=== PATIENT | male | born 1995 | race Caucasian/White ===

== ENCOUNTER 2017-05-15 11:42 | Emergency (ER) | payer BC, OTHER ==
[2017-05-15 11:52] VITALS: RESP 16
--- NOTE | 2017-05-15 12:09 | XR ---
EXAMINATION TYPE: XR hand complete RT DATE OF EXAM: 05/15/2017 CLINICAL HISTORY: pain TECHNIQUE: Frontal, lateral and oblique images of the right hand are obtained. COMPARISON: None. FINDINGS: There is no acute fracture/dislocation evident. The joint spaces appear within normal limi ts. There appears to be soft tissue swelling particularly involving the second and third digits. Claudia elate clinically. No radiopaque foreign body is seen. Consider cellulitis. IMPRESSION: There is no acute fracture or dislocation. Soft tissue swelling. Consider cellulitis. ICD 10 NO FRACTURE, INITIAL EVALUATION
--- NOTE | 2017-05-15 12:13 | ED ---
Extremity Problem HPI - General Chief complaint: Extremity Problem,Nontraumatic Stated complaint: rt hand pain Time Seen by Provider: 05/15/17 11:53 Source: patient Mode of arrival: ambulatory Limitations: no limitations - History of Present Illness Initial comments: 21-year-old male patient presents to emergency department today for complaints of right hand pain and swelling. Patient states that symptoms are mostly located in the middle finger, radiating up to his wrist. He states that he occasionally does get tingling. Patient states that the area is quite swollen, worse in the morning. He states that he has pain daily. He states that it seems to be worsening. She states that a few weeks ago he was seen at urgent care in [place] states that he was placed on a Medrol Dosepak. States while he was taking the steroids his symptoms did improve however once they were completely returned immediately. He states that he was then seen again at [facility] and given a prescription for naproxen which she states doesn't help at all. He was also given a splint to wear that immobilizes the wrist, he states that this does not help either. He states that he has not had any x-ray to the hand. He denies any known injury. He denies any pain or swelling in the shoulder, elbow, or forearm. Patient denies any recent fever, chills, shortness breath, chest pain, abdominal pain, nausea, vomiting, diarrhea, constipation, back pain, numbness, tingling, headache, visual changes, hematuria , dysuria, urinary frequency, urinary urgency, or any other complaints. - Related Data Previous Rx's Medication Instructions Recorded predniSONE 50 mg PO DAILY #7 tablet 05/15/17 Allergies Allergy/AdvReac Type Severity Reaction Status Date / Time No Known Allergies Allergy Verified 05/15/17 13:30 Review of Systems ROS Statement: Those systems with pertinent positive or pertinent negative responses have been documented in the HPI. ROS Other: All systems not noted in ROS Statement are negative. Past Medical History Past Medical History: No Reported History History of Any Multi-Drug Resistant Organisms: None Reported Past Surgical History: No Surgical Hx Reported Past Psychological History: No Psychological Hx Reported Smoking Status: Current some day smoker Past Alcohol Use History: None Reported Past Drug Use History: None Reported General Exam Limitations: no limitations Neck exam: Present: normal inspection. Absent: tenderness, meningismus, lymphadenopathy Respiratory exam: Present: normal lung sounds bilaterally. Absent: respiratory distress, wheezes, rales, rhonchi, stridor Cardiovascular Exam: Present: regular rate, normal rhythm, normal heart sounds. Absent: systolic murmur, diastolic murmur, rubs, gallop, clicks Extremities exam: Present: full ROM, tenderness (Over the third MCP joint, the third PIP joints, and the third DIP joint.), normal capillary refill, other ( Right hand swelling, worse in the middle finger. Skin is pink, warm, and dry. Vitaligo noted. Cap refill less than three seconds. Radial pulses strong and equal bilaterally. ). Absent: pedal edema, joint swelling, calf tenderness Course Vital Signs 05/15/17 05/15/17 11:49 13:27 Temperature 99.3 F 98.9 F Pulse Rate 90 87 Respiratory 16 16 Rate Blood Pressure 131/75 121/72 O2 Sat by Pulse 98 99 Oximetry Medical Decision Making - Medical Decision Making 21-year-old male patient presents to emergency department today for evaluation of pain and swelling to the first and second digits on his right hand. X-ray evaluation was negative. Did perform a CBC and a CRP, CRP level is 12.6. Patient has been given a course of prednisone. He is instructed to follow up with his primary care physician for further rheumatological workup. He is instructed to return here immediately for any new, worsening, or concerning symptoms. He verbalizes understanding and agrees this plan. - Lab Data Result diagrams: 05/15/17 12:21 Lab Results 05/15/17 05/15/17 Range/Units 12:21 12:21 WBC 9.8 (3.8-10.6) k/uL RBC 5.24 (4.30-5.90) m/uL Hgb 16.1 (13.0-17.5) gm/dL Hct 48.8 (39.0-53.0) % MCV 93.1 (80.0-100.0) fL MCH 30.6 (25.0-35.0) pg MCHC 32.9 (31.0-37.0) g/dL RDW 13.9 (11.5-15.5) % Plt Count 352 (150-450) k/uL Neutrophils % 62 % Lymphocytes % 23 % Monocytes % 6 % Eosinophils % 7 % Basophils % 1 % Neutrophils # 6.0 (1.3-7.7) k/uL Lymphocytes # 2.2 (1.0-4.8) k/uL Monocytes # 0.6 (0-1.0) k/uL Eosinophils # 0.7 (0-0.7) k/uL Basophils # 0.1 (0-0.2) k/uL C-Reactive Protein 12.6 H (<10.0) mg/L - Radiology Data Radiology results: report reviewed, image reviewed 3 views of the right hand are obtained and showed no acute fracture or dislocation. The joint spaces appear within normal limits. There appears to be soft tissue swelling particularly involving the second and third digits. Correlate clinically. No radiopaque foreign body is seen. Consider cellulitis. Impression by Dr. Narayan states there is no acute fracture or dislocation. Soft tissue swelling. Consider cellulitis. Disposition Clinical Impression: Swelling of right hand, Elevated C-reactive protein (CRP), Arthralgia Disposition: HOME SELF-CARE Condition: Good Instructions: Arthralgia (ED), Swollen Joint (ED) Additional Instructions: Complete steroid prescription in full. Follow-up with Dr. Valderrama for recheck in 1-2 days. Return here immediately for any new, worsening, or concerning symptoms. Prescriptions: predniSONE 50 mg PO DAILY #7 tablet Referrals: Naresh Valderrama MD [Primary Care Provider] - 1-2 days Time of Disposition: 13:19
[2017-05-15 12:39] LABS: Basophils # (A) 0.1 k/uL (0-0.2); Basophils % (A) 1 %; CH 32.1; CHCM 34.6; Eosinophils # (A) 0.7 k/uL (0-0.7); Eosinophils % (A) 7 %; HCT 48.8 % (39.0-53.0); HDW 2.45; HGB 16.1 gm/dL (13.0-17.5); Luc # (Auto) 0.11; Luc % (Auto) 1; Lymphocytes # (A) 2.2 k/uL (1.0-4.8); Lymphocytes % (A) 23 %; MCH 30.6 pg (25.0-35.0); MCHC 32.9 g/dL (31.0-37.0); MCV 93.1 fL (80.0-100.0); Monocytes # (A) 0.6 k/uL (0-1.0); Monocytes % (A) 6 %; Neutrophils % (A) 62 %; RBC 5.24 m/uL (4.30-5.90); RDW 13.9 % (11.5-15.5); WBC 9.8 k/uL (3.8-10.6); WBC (Perox) 9.59
[2017-05-15 13:28] VITALS: BP 121/72; PULSE 87; TEMP 98.9
== END 2017-05-15 13:27 | disposition home or self-care (01) ==
LOC: EC 11:42
DX: M79.89 Other specified soft tissue disorders (principal); M25.541 Pain in joints of right hand; R79.82 Elevated C-reactive protein (CRP); F17.200 Nicotine dependence, unspecified, uncomplicated
CPT/HCPCS: 36415; 85025; 86140; 99283

== ENCOUNTER 2018-07-25 01:43 | Emergency (ER) | payer OTHER ==
[2018-07-25] MEDS ORDERED: KETOROLAC 30 MG/ML 1 ML VIAL IM STA (02:08)
[2018-07-25] MEDS ORDERED: ORPHENADRINE 30 MG/ML 2 ML VIAL IM STA (02:08)
--- NOTE | 2018-07-25 03:09 | XR ---
EXAMINATION TYPE: XR foot complete LT DATE OF EXAM: 07/25/2018 COMPARISON: NONE HISTORY: Heel pain TECHNIQUE: 3 views FINDINGS: Metatarsals are intact. I see no fracture nor dislocation. There is a plantar calcaneal spu r. IMPRESSION: Calcaneal spurring. No fracture seen.
--- NOTE | 2018-07-25 03:50 | ED ---
Extremity Problem HPI - General Chief complaint: Extremity Problem,Nontraumatic Stated complaint: lower back pain Time Seen by Provider: 07/25/18 01:54 Source: patient Mode of arrival: ambulatory Limitations: no limitations - History of Present Illness Initial comments: 22-year-old male patient presents to the emergency department today with chief complaint of left heel pain and left lower back pain. Patient states he has had sharp stabbing pain to the left heel for the last year. States that he developed low back pain approximately 2 months ago. States that both of been bothering him with increasing frequency however today his back seemed to become worse so he felt he should come to the emergency department for evaluation. He denies any pain radiation down the leg however states that it does extend down to his buttock. He denies any numbness or tingling to the lower extremities. Denies any saddle anesthesia or loss of bowel or bladder control. Patient denies any known injury to the low back. Denies any injury to the foot. Patient states occasionally he will have some mild swelling to the left foot. States that he has been diagnosed with arthritis. Denies any fevers or chills with this. Denies any use of street drugs. Patient denies any recent rash, shortness breath, chest pain, abdominal pain, nausea, vomiting, diarrhea, constipation, dizziness, weakness, hematuria, dysuria, urinary urgency, urinary frequency, headache, visual changes, or any other complaints. - Related Data Previous Rx's Medication Instructions Recorded Cyclobenzaprine [Flexeril] 10 mg PO TID #15 tab 07/25/18 Ibuprofen [Motrin] 600 mg PO Q8HR PRN #30 tab 07/25/18 Allergies Allergy/AdvReac Type Severity Reaction Status Date / Time No Known Allergies Allergy Verified 07/25/18 01:53 Review of Systems ROS Statement: Those systems with pertinent positive or pertinent negative responses have been documented in the HPI. ROS Other: All systems not noted in ROS Statement are negative. Past Medical History Past Medical History: No Reported History History of Any Multi-Drug Resistant Organisms: None Reported Past Surgical History: No Surgical Hx Reported Past Psychological History: No Psychological Hx Reported Smoking Status: Current some day smoker Past Alcohol Use History: None Reported, Rare Past Drug Use History: None Reported General Exam Limitations: no limitations General appearance: alert, in no apparent distress, other (This is a well- developed, well-nourished adult male patient in no acute distress. Vital signs upon presentation are temperature 98.8F, pulse 99, respirations 18, blood pressure 126/66, pulse ox 98% on room air.) Eye exam: Present: normal appearance, PERRL, EOMI. Absent: scleral icterus, conjunctival injection, periorbital swelling ENT exam: Present: normal exam, normal oropharynx, mucous membranes moist Respiratory exam: Present: normal lung sounds bilaterally. Absent: respiratory distress, wheezes, rales, rhonchi, stridor Cardiovascular Exam: Present: regular rate, normal rhythm, normal heart sounds. Absent: systolic murmur, diastolic murmur, rubs, gallop, clicks GI/Abdominal exam: Present: soft, normal bowel sounds. Absent: distended, tenderness, guarding, rebound, rigid Extremities exam: Present: normal inspection, full ROM, tenderness (Tenderness over the plantar surface left heel), normal capillary refill, other (Skin to his left foot is intact with no evidence of lesion or plantar wart. Skin is pink, warm, dry. Cap refills less than 3 seconds. Pedal pulses are 2+ and equal bilaterally.). Absent: pedal edema, joint swelling, calf tenderness Back exam: Present: normal inspection, other (Patient has tenderness over the left low back. Skin is intact with no evidence of rash.). Absent: vertebral tenderness Neurological exam: Present: alert, oriented X3, CN II-XII intact, other ( Strength in all 4 extremities is 5/5.) Psychiatric exam: Present: normal affect, normal mood Skin exam: Present: warm, dry, intact, normal color. Absent: rash Course Vital Signs 07/25/18 07/25/18 01:51 04:10 Temperature 98.8 F 98.0 F Pulse Rate 99 83 Respiratory 18 17 Rate Blood Pressure 126/66 116/74 O2 Sat by Pulse 98 95 Oximetry Medical Decision Making - Medical Decision Making 22-year-old male patient presents to the emergency department today for evaluation of left heel pain and left low back pain. Physical examination is relatively unremarkable. Patient is neurologically and neurovascularly intact. Patient did have some tenderness over the plantar surface of the left heel. Some tenderness over the left low back. Skin was intact with no lesions. X- ray of the left foot did reveal calcaneal spurring. Patient symptoms are consistent with this finding. Patient symptoms are also consistent with mechanical low back pain. We'll treat with anti-inflammatory medication and muscle relaxers. For the heel sprays advised to obtain a insert for his shoes the drugstore. He is instructed to use ice to the bottom of the foot for relief of symptoms. He is instructed follow-up with his primary care physician for recheck in 1-2 days. Return parameters discussed in detail. He verbalizes understanding and agrees with this plan. - Radiology Data Radiology results: report reviewed, image reviewed 3 views of the left foot are obtained. Metatarsals are intact. This no fracture or dislocation. There is a plantar calcaneal spur. Impression by Dr. Paris shows calcaneal spurring. No fracture seen. Disposition Clinical Impression: Calcaneal spur of left foot, Acute low back pain Disposition: HOME SELF-CARE Condition: Good Instructions: Acute Low Back Pain (ED), Lower Back Exercises (ED), Heel Spur ( ED), Core Strengthening Exercises (ED) Additional Instructions: Take medication as directed. Find insert at the drug store for heel spurs. Use ice on the bottom of the foot to reduce inflammation. Follow up with your primary care physician for recheck in 1-2 days. Return immediately for any new, worsening or concerning symptoms. Prescriptions: Cyclobenzaprine [Flexeril] 10 mg PO TID #15 tab Ibuprofen [Motrin] 600 mg PO Q8HR PRN #30 tab PRN Reason: Pain Is patient prescribed a controlled substance at d/c from ED?: No Referrals: Naresh Valderrama MD [Primary Care Provider] - 1-2 days Time of Disposition: 03:49
[2018-07-25 04:12] VITALS: BP 116/74; PULSE 83; RESP 17; TEMP 98
== END 2018-07-25 04:11 | disposition home or self-care (01) ==
LOC: EC 01:43
DX: M77.32 Calcaneal spur, left foot (principal); M54.5 Low back pain; F17.200 Nicotine dependence, unspecified, uncomplicated
CPT/HCPCS: 73630; 99283; 96372 ×2; J2360; J1885

== ENCOUNTER 2020-04-19 11:02 | Emergency (ER) | payer OTHER ==
[2020-04-19 11:16] VITALS: BP 113/75; PULSE 73; RESP 19; TEMP 98.8
--- NOTE | 2020-04-19 11:38 | XR ---
EXAMINATION TYPE: XR hand complete LT DATE OF EXAM: 04/19/2020 CLINICAL HISTORY: Injury with pain. TECHNIQUE: Frontal, lateral and oblique images of the left hand are obtained. COMPARISON: None. FINDINGS: There is acute comminuted intra-articular displaced fracture at base of fifth metacarpal w ith a few small fracture fragments. Incomplete extension of the phalanges. The joint spaces in the le ft hand appear within normal limits. The overlying soft tissue appears unremarkable. IMPRESSION: There is acute comminuted displaced intra-articular fracture base of fifth metacarpal. (Initial encounter closed type posttraumatic fracture)
--- NOTE | 2020-04-19 12:01 | ED ---
Upper Extremity HPI - General Chief Complaint: Extremity Injury, Upper Stated Complaint: Left Hand Injury Time Seen by Provider: 04/19/20 11:17 Source: patient Mode of arrival: ambulatory Limitations: no limitations - History of Present Illness Initial Comments: 24y male presenting for left hand injury. Patient states crushed left hand with a sludge hammer last night. Patient admits to some swelling, light bruising. Denies loss of sensation, weakness. States he is still able to move all digits of the left hand, Denies wrist pain. Denies additional areas of injury. Denies laceration. Patient has no additional complaints. Appears well on arrival, no acute distress. - Related Data Previous Rx's Medication Instructions Recorded Cyclobenzaprine [Flexeril] 10 mg PO TID #15 tab 07/25/18 Ibuprofen [Motrin] 600 mg PO Q8HR PRN #30 tab 07/25/18 Allergies Allergy/AdvReac Type Severity Reaction Status Date / Time No Known Allergies Allergy Verified 07/25/18 01:53 Review of Systems ROS Statement: Those systems with pertinent positive or pertinent negative responses have been documented in the HPI. ROS Other: All systems not noted in ROS Statement are negative. Past Medical History Past Medical History: No Reported History History of Any Multi-Drug Resistant Organisms: None Reported Past Surgical History: No Surgical Hx Reported Past Psychological History: No Psychological Hx Reported Smoking Status: Current every day smoker Past Alcohol Use History: None Reported, Rare Past Drug Use History: None Reported General Exam - General Exam Comments Initial Comments: General: The patient is awake and alert, in no distress, and does not appear acutely ill. Eye: +3mm pupils are equal, round and reactive to light, extra-ocular movements are intact. No nystagmus. There is normal conjunctiva bilaterally. No signs of icterus. Cardiovascular: There is a regular rate and rhythm. No murmur, rub or gallop is appreciated. Respiratory: Lungs are clear to auscultation, respirations are non-labored, breath sounds are equal. No wheezes, stridor, rales, or rhonchi. Musculoskeletal: diffuse swelling over the dorsal aspect of left hand. His tenderness to patient over the lateral aspect of hand notes tenderness to patient the carpals the anatomical snuffbox. Full sensation proximal and distal to injury site. Strength intact at the MCP DIP and PIP joints of all 5 digits of the left hand. Patient is right-hand dominant. Radial pulses equal +2 bilaterally.able to make the fingers crossed thumbs-up and oppose the small digit and thumb. tissues are soft and compressible no pain out of proportion. Neurological: A&O x 3. CN II-XII intact grossly, There are no obvious motor or sensory deficits. Coordination appears grossly intact. Speech is normal. Skin: Skin is warm and dry and no rashes or lesions are noted. Psychiatric: Cooperative, appropriate mood & affect, normal judgment. Limitations: no limitations Course Vital Signs 04/19/20 11:11 Temperature 98.8 F Pulse Rate 73 Respiratory 19 Rate Blood Pressure 113/75 O2 Sat by Pulse 98 Oximetry Medical Decision Making - Medical Decision Making patient neurovascular intact no pain out of proportion. Soft tissues soft compressible. X-rays revealed a fifth metacarpal base fracture. There is some displacement. Patient placed in splint. Instructed to f/u with orthopedic hand in 2-3 days. Patient is agreeable to care plan and discharge her discussed return parameters patient is aware of the importance of outpatient follow-up discharged appearing well. Disposition Clinical Impression: Fracture of fifth metacarpal bone of left hand, Left hand pain Disposition: HOME SELF-CARE Condition: Good Instructions (If sedation given, give patient instructions): Hand Fracture (ED) Additional Instructions: Please use medication as discussed. Please follow-up with orthopedic hand in next 2-3 days, call [facility] after you leave here to schedule your appointment. Keep splint in place. Please return to emergency room if the symptoms increase or worsen or for any other concerns. Is patient prescribed a controlled substance at d/c from ED?: No Referrals: Asher Bain DO [Medical Doctor] - 1-2 days Naresh Valderrama MD [Primary Care Provider] - 1-2 days Time of Disposition: 12:00
== END 2020-04-19 12:10 | disposition home or self-care (01) ==
LOC: EC 11:02
DX: S62.317A Displaced fracture of base of fifth metacarpal bone, left hand, initial encounter for closed fracture (principal); F17.200 Nicotine dependence, unspecified, uncomplicated; W22.8XXA Striking against or struck by other objects, initial encounter
CPT/HCPCS: 29125; 99284

== ENCOUNTER 2020-05-05 23:01 | Emergency (ER) | payer OTHER ==
[2020-05-05] MEDS ORDERED: IBUPROFEN 800 MG TAB PO STA (23:12)
[2020-05-05] MEDS ORDERED: ACETAMINOPHEN TAB 500 MG TAB PO STA (23:12)
--- NOTE | 2020-05-05 23:26 | ED ---
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 No other recent travel history. Patient has had persistent fever not feeling well for a few days not bodyaches and pains and some occasional shortness of breath, no underlying medical history MD Complaint: fever, malaise, weakness -: days(s) Temperature Source: oral Context: sick contacts Associated Symptoms: chills, rigors, myalgias, sore throat, cough, nausea Treatments Prior to Arrival: none - Related Data Previous Rx's Medication Instructions Recorded Cyclobenzaprine [Flexeril] 10 mg PO TID #15 tab 07/25/18 Ibuprofen [Motrin] 600 mg PO Q8HR PRN #30 tab 07/25/18 Allergies Allergy/AdvReac Type Severity Reaction Status Date / Time No Known Allergies Allergy Verified 05/05/20 23:07 Review of Systems ROS Statement: Those systems with pertinent positive or pertinent negative responses have been documented in the HPI. ROS Other: All systems not noted in ROS Statement are negative. Past Medical History Past Medical History: No Reported History History of Any Multi-Drug Resistant Organisms: None Reported Past Surgical History: No Surgical Hx Reported Past Psychological History: No Psychological Hx Reported Smoking Status: Current every day smoker Past Alcohol Use History: Occasional, Rare Past Drug Use History: None Reported General Exam Limitations: no limitations General appearance: alert, in no apparent distress Head exam: Present: atraumatic, normocephalic, normal inspection Eye exam: Present: normal appearance, PERRL, EOMI. Absent: scleral icterus, conjunctival injection, periorbital swelling ENT exam: Present: normal exam, mucous membranes moist Neck exam: Present: normal inspection. Absent: tenderness, meningismus, lymphadenopathy Respiratory exam: Present: decreased breath sounds, prolonged expiratory. Absent: respiratory distress, wheezes, rales, rhonchi, stridor Cardiovascular Exam: Present: normal rhythm, tachycardia, normal heart sounds. Absent: systolic murmur, diastolic murmur, rubs, gallop, clicks GI/Abdominal exam: Present: soft, normal bowel sounds. Absent: distended, tenderness, guarding, rebound, rigid Extremities exam: Present: normal inspection, full ROM, normal capillary refill. Absent: tenderness, pedal edema, joint swelling, calf tenderness Back exam: Present: normal inspection Neurological exam: Present: alert, oriented X3, CN II-XII intact Psychiatric exam: Present: normal affect, normal mood Skin exam: Present: warm, dry, intact, normal color. Absent: rash Course Vital Signs 05/05/20 23:04 Temperature 101.7 F H Pulse Rate 127 H Respiratory 22 Rate Blood Pressure 110/69 O2 Sat by Pulse 94 L Oximetry - Reevaluation(s) Reevaluation #1: 05/06/20 00:28 Medical record is reviewed Reevaluation #2: 05/06/20 00:29 Patient still does not feel well bodyaches pains run down - Consultations Consultation #1: Spoke with Dr. Pineda agrees to admit this patient Medical Decision Making - Medical Decision Making 24 male DF for evaluation, patient has persistent fever and tachycardia here in the ER will admit for rule out coronavirus infection, patient also does not feel well with diffuse body aches and pains - Lab Data Result diagrams: 05/05/20 23:42 Lab Results 05/05/20 05/05/20 Range/Units 23:42 23:42 Sodium 132 L (137-145) mmol/L Potassium 3.5 (3.5-5.1) mmol/L Chloride 104 (98-107) mmol/L Carbon Dioxide 21 L (22-30) mmol/L Anion Gap 7 mmol/L BUN 7 L (9-20) mg/dL Creatinine 0.78 (0.66-1.25) mg/dL Est GFR (CKD-EPI)AfAm >90 (>60 ml/min/1.73 sqM) Est GFR (CKD-EPI)NonAf >90 (>60 ml/min/1.73 sqM) Glucose 115 H (74-99) mg/dL Plasma Lactic Acid Coy 1.3 (0.7-2.0) mmol/L Calcium 8.5 (8.4-10.2) mg/dL Magnesium 1.8 (1.6-2.3) mg/dL Total Bilirubin 1.1 (0.2-1.3) mg/dL AST 32 (17-59) U/L ALT 24 (4-49) U/L Alkaline Phosphatase 64 (38-126) U/L Lactate Dehydrogenase 824 H (313-618) U/L C-Reactive Protein 43.6 H (<10.0) mg/L Total Protein 6.7 (6.3-8.2) g/dL Albumin 3.6 (3.5-5.0) g/dL - EKG Data -: EKG Interpreted by Me (EKG is sinus tach 126 AK 132 QRS 78 QTc 448) Disposition Clinical Impression: Fever, Viral infection, Tachycardia Narrative: roCOVID Disposition: ADMITTED IP TO THIS HOSP Condition: Fair Is patient prescribed a controlled substance at d/c from ED?: No Referrals: Naresh Valderrama MD [Primary Care Provider] - 1-2 days
[2020-05-06] MEDS ORDERED: SODIUM CHLORIDE 0.9% 500 ML 500 ML IV STA (00:06)
[2020-05-06] MEDS ORDERED: SODIUM CHLORIDE 0.9% 1,000 ML IV STA ×2 (00:06)
[2020-05-06 00:10] LABS: ALT 24 U/L (4-49); AST 32 U/L (17-59); African American GFR (CKD) >90 (>60 ml/min/1.73 sqM); Albumin 3.6 g/dL (3.5-5.0); Alkaline Phosphatase 64 U/L (38-126); Anion Gap 7 mmol/L; Blood Urea Nitrogen 7 mg/dL (9-20); C Reactive Protein 43.6 mg/L (<10.0); Calcium 8.5 mg/dL (8.4-10.2); Carbon Dioxide 21 mmol/L (22-30); Chloride 104 mmol/L (98-107); Glucose 115 mg/dL (74-99); LDH 824 U/L (313-618); Magnesium 1.8 mg/dL (1.6-2.3); Non-African American GFR(CKD) >90 (>60 ml/min/1.73 sqM); Potassium 3.5 mmol/L (3.5-5.1); Sodium 132 mmol/L (137-145); Total Bilirubin 1.1 mg/dL (0.2-1.3); Total Protein 6.7 g/dL (6.3-8.2)
--- NOTE | 2020-05-06 00:15 | XR ---
EXAMINATION TYPE: XR chest 1V portable DATE OF EXAM: 05/05/2020 COMPARISON: NONE HISTORY: Pneumonia TECHNIQUE: FINDINGS: Heart and mediastinum are normal. Lungs are clear. Diaphragm is normal. Bony thorax appears normal. IMPRESSION: Normal chest.
[2020-05-06 00:17] LABS: INR 1.1 (<1.2)
[2020-05-06 00:18] LABS: Partial Thromboplastin Time 25.9 sec (22.0-30.0); Prothrombin Time 11.4 sec (9.0-12.0)
[2020-05-06 00:20] LABS: HCT 47.1 % (39.0-53.0); HGB 15.7 gm/dL (13.0-17.5); MCH 29.9 pg (25.0-35.0); MCHC 33.3 g/dL (31.0-37.0); MCV 89.9 fL (80.0-100.0); Platelet Count 212 k/uL (150-450); RBC 5.24 m/uL (4.30-5.90); RDW 12.8 % (11.5-15.5)
[2020-05-06] MEDS ORDERED: PNEUMONIA PROTOCOL UTILIZED 1 EACH MISC PO PRN (00:22)
[2020-05-06] MEDS ORDERED: IPRATROPIUM-ALBUTEROL 3 ML NEB INHALATION PRN (00:22)
[2020-05-06] MEDS ORDERED: SODIUM CHLORIDE 0.9% 1,000 ML IV SCH (00:30)
[2020-05-06] MEDS ORDERED: AZITHROMYCIN 500 MG in SODIUM CHLORIDE 0.9% 250 ML IVPB ONE (00:30)
[2020-05-06 00:37] LABS: D-Dimer 2.93 mg/L FEU (<0.60)
[2020-05-06 00:49] VITALS: RESP 18
[2020-05-06 01:32] LABS: Band Neutrophils % 5 %; Neutrophils % (M) 41 %; Nucleated Red Blood Cells 0 /100 WBC (0-0); Total Cells Counted 100
[2020-05-06 01:35] LABS: Anisocytosis (M) Present; Large Platelets Present; Polychromasia Present
[2020-05-06 01:43] LABS: Reactive Lymphocytes Present
[2020-05-06 04:05] VITALS: BP 108/53; PULSE 98; TEMP 98.5
[2020-05-06] MEDS ORDERED: ENOXAPARIN 40 MG/0.4 ML SYRINGE SQ SCH (09:00)
[2020-05-06 10:40] LABS: Ferritin 310.1 ng/mL (22.0-322.0)
[2020-05-07] MEDS ORDERED: AZITHROMYCIN 500 MG TAB PO SCH (09:00)
== END 2020-05-06 03:25 | disposition other institution (70) ==
LOC: EC 23:01 → UNDOADMOB 05-06 00:22 → 1SOBS 05-06 00:22 → EC 05-06 03:25
DX: B34.9 Viral infection, unspecified (principal); R00.0 Tachycardia, unspecified; Z20.828 Contact with and (suspected) exposure to other viral communicable diseases; F17.200 Nicotine dependence, unspecified, uncomplicated
CPT/HCPCS: 99285; 96365; 96361; 36415; 93005; 85379; 80053; 82728; 83605; 83615; 83735; 85025; 85610; 85730; 86140; 87040; 87081; 87430; 87502; 84145; 71045; U0003; J0456

== ENCOUNTER 2020-07-18 06:41 | Emergency (ER) | payer OTHER ==
[2020-07-18] MEDS ORDERED: KETOROLAC 15 MG/ML 1 ML VIAL IVP STA (07:22)
--- NOTE | 2020-07-18 07:28 | ED ---
General Adult HPI - General Chief complaint: Extremity Problem,Nontraumatic Stated complaint: knee pain Time Seen by Provider: 07/18/20 07:08 Source: patient, RN notes reviewed Limitations: no limitations - History of Present Illness Initial comments: Patient is a pleasant 24-year-old male presenting to the emergency Department with complaints of right knee swelling and pain. Onset of symptoms was around 2 weeks ago. Symptoms worsen with standing up at work all day. No fevers. No erythema. No warmth. Patient states he had a similar episode once a couple years ago however unclear why. Pain increases with movement. No trauma. - Related Data Previous Rx's Medication Instructions Recorded Ibuprofen [Motrin] 600 mg PO Q6HR PRN #20 tab 07/18/20 Allergies Allergy/AdvReac Type Severity Reaction Status Date / Time No Known Allergies Allergy Verified 07/18/20 08:48 Review of Systems ROS Statement: Those systems with pertinent positive or pertinent negative responses have been documented in the HPI. ROS Other: All systems not noted in ROS Statement are negative. Constitutional: Denies: fever Eyes: Denies: eye pain ENT: Denies: ear pain Respiratory: Denies: cough Cardiovascular: Denies: chest pain Endocrine: Denies: fatigue Gastrointestinal: Denies: abdominal pain Genitourinary: Denies: dysuria Musculoskeletal: Reports: as per HPI, joint swelling, arthralgia. Denies: back pain Skin: Denies: rash Neurological: Denies: headache Past Medical History Past Medical History: No Reported History History of Any Multi-Drug Resistant Organisms: None Reported Past Surgical History: No Surgical Hx Reported Past Psychological History: No Psychological Hx Reported Smoking Status: Current every day smoker Past Alcohol Use History: Rare Past Drug Use History: None Reported General Exam Limitations: no limitations General appearance: alert, in no apparent distress Head exam: Present: normocephalic Eye exam: Present: normal appearance Neck exam: Present: normal inspection Respiratory exam: Present: normal lung sounds bilaterally, respiratory distress Cardiovascular Exam: Present: regular rate, normal rhythm Expanded Peripheral pulses: 2+: Dorsalis Pedis (R), Dorsalis Pedis (L) GI/Abdominal exam: Present: soft. Absent: tenderness Extremities exam: Present: joint swelling (Right knee with moderate effusion with tenderness. No erythema. No warmth.) Neurological exam: Present: alert Psychiatric exam: Present: normal affect, normal mood Skin exam: Present: normal color, other (Bilateral hands with distal skin discoloration which patient states is chronic since a young child). Absent: erythema Course Vital Signs 07/18/20 07/18/20 06:59 10:46 Temperature 98.7 F Pulse Rate 91 68 Respiratory 18 16 Rate Blood Pressure 130/81 108/70 O2 Sat by Pulse 97 98 Oximetry Procedures - Procedures Initial comment: Arthrocentesis: Right knee marked and prepped with Betadine. Area was anesthetized with 2 mL of 1% plain lidocaine. Using lateral approach 18-gauge needle withdrew 70 mL of yellow fluid. No purulence. Patient tolerated procedure well. Medical Decision Making - Medical Decision Making Case discussed with practitioner branch who agrees patient is low risk for infection and he is comfortable with discharge and follow-up. Patient updated. - Lab Data Result diagrams: 07/18/20 08:37 07/18/20 08:37 Lab Results 07/18/20 07/18/20 07/18/20 Range/Units 08:37 08:37 08:37 WBC 10.0 (3.8-10.6) k/uL RBC 5.10 (4.30-5.90) m/uL Hgb 15.4 (13.0-17.5) gm/dL Hct 46.2 (39.0-53.0) % MCV 90.5 (80.0-100.0) fL MCH 30.3 (25.0-35.0) pg MCHC 33.4 (31.0-37.0) g/dL RDW 12.3 (11.5-15.5) % Plt Count 385 (150-450) k/uL MPV 7.0 Neutrophils % 55 % Lymphocytes % 29 % Monocytes % 6 % Eosinophils % 7 % Basophils % 2 % Neutrophils # 5.5 (1.3-7.7) k/uL Lymphocytes # 2.9 (1.0-4.8) k/uL Monocytes # 0.6 (0-1.0) k/uL Eosinophils # 0.7 (0-0.7) k/uL Basophils # 0.2 (0-0.2) k/uL PT 10.2 (9.0-12.0) sec INR 1.0 (<1.2) APTT 24.9 (22.0-30.0) sec Sodium 138 (137-145) mmol/L Potassium 4.4 (3.5-5.1) mmol/L Chloride 106 (98-107) mmol/L Carbon Dioxide 22 (22-30) mmol/L Anion Gap 10 mmol/L BUN 14 (9-20) mg/dL Creatinine 0.72 (0.66-1.25) mg/dL Est GFR (CKD-EPI)AfAm >90 (>60 ml/min/1.73 sqM) Est GFR (CKD-EPI)NonAf >90 (>60 ml/min/1.73 sqM) Glucose 125 H (74-99) mg/dL Plasma Lactic Acid Coy (0.7-2.0) mmol/L Calcium 8.9 (8.4-10.2) mg/dL Total Bilirubin 0.8 (0.2-1.3) mg/dL AST 22 (17-59) U/L ALT 24 (4-49) U/L Alkaline Phosphatase 74 (38-126) U/L C-Reactive Protein 38.9 H (<10.0) mg/L Total Protein 7.0 (6.3-8.2) g/dL Albumin 3.8 (3.5-5.0) g/dL Fluid Source Fluid Color Fluid Appearance Fluid RBC /uL Fluid Nucleated Cells /uL Fluid Polynuclear WBCs % Fluid Mononuclear WBCs % 07/18/20 07/18/20 Range/Units 08:37 09:41 WBC (3.8-10.6) k/uL RBC (4.30-5.90) m/uL Hgb (13.0-17.5) gm/dL Hct (39.0-53.0) % MCV (80.0-100.0) fL MCH (25.0-35.0) pg MCHC (31.0-37.0) g/dL RDW (11.5-15.5) % Plt Count (150-450) k/uL MPV Neutrophils % % Lymphocytes % % Monocytes % % Eosinophils % % Basophils % % Neutrophils # (1.3-7.7) k/uL Lymphocytes # (1.0-4.8) k/uL Monocytes # (0-1.0) k/uL Eosinophils # (0-0.7) k/uL Basophils # (0-0.2) k/uL PT (9.0-12.0) sec INR (<1.2) APTT (22.0-30.0) sec Sodium (137-145) mmol/L Potassium (3.5-5.1) mmol/L Chloride (98-107) mmol/L Carbon Dioxide (22-30) mmol/L Anion Gap mmol/L BUN (9-20) mg/dL Creatinine (0.66-1.25) mg/dL Est GFR (CKD-EPI)AfAm (>60 ml/min/1.73 sqM) Est GFR (CKD-EPI)NonAf (>60 ml/min/1.73 sqM) Glucose (74-99) mg/dL Plasma Lactic Acid Coy 1.5 (0.7-2.0) mmol/L Calcium (8.4-10.2) mg/dL Total Bilirubin (0.2-1.3) mg/dL AST (17-59) U/L ALT (4-49) U/L Alkaline Phosphatase (38-126) U/L C-Reactive Protein (<10.0) mg/L Total Protein (6.3-8.2) g/dL Albumin (3.5-5.0) g/dL Fluid Source Synovial Fluid Color Yellow Fluid Appearance Hazy Fluid RBC 340 /uL Fluid Nucleated Cells 5020 /uL Fluid Polynuclear WBCs 89 % Fluid Mononuclear WBCs 11 % - Radiology Data Radiology results: image reviewed (Right knee x-ray does show effusion) Disposition Clinical Impression: Knee effusion, right Disposition: HOME SELF-CARE Condition: Stable Instructions (If sedation given, give patient instructions): Swollen Knee Joint (ED) Additional Instructions: Please follow-up with orthopedics in the next day or 2 for recheck, number provided. Please also follow-up with primary care physician. Return for fever, redness, worsening or change in symptoms or other concerns. Prescription for Motrin 600 sent to [facility] on Prescriptions: Ibuprofen [Motrin] 600 mg PO Q6HR PRN #20 tab PRN Reason: Pain Is patient prescribed a controlled substance at d/c from ED?: No Referrals: Naresh Valderrama MD [Primary Care Provider] - 1-2 days Rush Sue MD [STAFF PHYSICIAN] - 1-2 days Time of Disposition: 11:50
[2020-07-18] MEDS ORDERED: LIDOCAINE 1% INJ 10MG/ML (20 ML MDV) SQ ONE (07:42)
--- NOTE | 2020-07-18 07:50 | XR ---
EXAMINATION TYPE: XR knee complete RT DATE OF EXAM: 07/18/2020 COMPARISON: NONE HISTORY: 24-year-old male with pain and swelling TECHNIQUE: 3 views FINDINGS: Moderate to large knee joint effusion. Extensor mechanism appears intact. No acute fracture, subluxat ion, or dislocation seen. IMPRESSION: Moderate to large joint effusion. MRI if indicated for any suspected internal derangement. No acute o sseous abnormality seen.
[2020-07-18 08:45] LABS: Basophils # (A) 0.2 k/uL (0-0.2); Basophils % (A) 2 %; Eosinophils # (A) 0.7 k/uL (0-0.7); Eosinophils % (A) 7 %; HCT 46.2 % (39.0-53.0); HGB 15.4 gm/dL (13.0-17.5); Lymphocytes # (A) 2.9 k/uL (1.0-4.8); Lymphocytes % (A) 29 %; MCH 30.3 pg (25.0-35.0); MCHC 33.4 g/dL (31.0-37.0); MCV 90.5 fL (80.0-100.0); Monocytes # (A) 0.6 k/uL (0-1.0); Monocytes % (A) 6 %; Neutrophils # (A) 5.5 k/uL (1.3-7.7); Neutrophils % (A) 55 %; Platelet Count 385 k/uL (150-450); RDW 12.3 % (11.5-15.5)
[2020-07-18 08:56] LABS: ALT 24 U/L (4-49); AST 22 U/L (17-59); African American GFR (CKD) >90 (>60 ml/min/1.73 sqM); Albumin 3.8 g/dL (3.5-5.0); Alkaline Phosphatase 74 U/L (38-126); Anion Gap 10 mmol/L; Blood Urea Nitrogen 14 mg/dL (9-20); C Reactive Protein 38.9 mg/L (<10.0); Calcium 8.9 mg/dL (8.4-10.2); Carbon Dioxide 22 mmol/L (22-30); Chloride 106 mmol/L (98-107); Glucose 125 mg/dL (74-99); Non-African American GFR(CKD) >90 (>60 ml/min/1.73 sqM); Potassium 4.4 mmol/L (3.5-5.1); Sodium 138 mmol/L (137-145); Total Bilirubin 0.8 mg/dL (0.2-1.3)
[2020-07-18 09:06] LABS: Partial Thromboplastin Time 24.9 sec (22.0-30.0); Prothrombin Time 10.2 sec (9.0-12.0)
[2020-07-18 11:30] LABS: Appearance,BF Hazy; Color,BF Yellow; Nucleated Cells, Body Fluid 5020 /uL; RBC, Body Fluid 340 /uL
[2020-07-18 11:32] LABS: Mononuclear WBC,Body Fluid 11 %; Polynuclear WBC,Body Fluid 89 %; Total Cells Counted,Body Fluid 100
[2020-07-18] MEDS ORDERED: ACET/COD 300 MG/30 MG STARTER PACK 6 TAB BTL PO STA (11:51)
[2020-07-18 12:41] VITALS: BP 124/75; PULSE 72; RESP 18; TEMP 98.3
[2020-07-18 17:54] LABS: Rheumatoid Factor, Qnt <4 IU/mL (0-13)
[2020-07-18 20:33] LABS: Glucose, BF Source Body Fluid; Glucose, Body Fluid 114 mg/dL; Total Protein, Body Fluid 4500 mg/dL
== END 2020-07-18 12:35 | disposition home or self-care (01) ==
LOC: EC 06:41
DX: M25.461 Effusion, right knee (principal); F17.200 Nicotine dependence, unspecified, uncomplicated
CPT/HCPCS: 36415; 89060; 80053; 89050; 83605; 85025; 85610; 85730; 86140; 86431; 87040; 87070; 87205; 82945; 84157; 73562; 99284; 20610; 96374; J2001; J1885

== ENCOUNTER → 2020-08-18 | Outpatient (CLI) | payer OTHER ==
--- NOTE | 2020-08-18 15:44 | MR ---
EXAMINATION TYPE: MR knee RT wo con DATE OF EXAM: 08/18/2020 COMPARISON: Plain film 07/26/2020 HISTORY: Right knee pain x 2 mos, no trauma TECHNIQUE: Multiplanar, multisequence imaging of the right knee is performed without IV contrast. FINDINGS: MEDIAL MENISCUS: At the level the medial meniscus there is some increased distance, some increased si gnal present suggesting a degree of meniscocapsular separation. LATERAL MENISCUS: Anterior and posterior horns are remarkable for possible longitudinal tear insertio n of the femoral ligament, sagittal image #19. CRUCIATE LIGAMENTS: The anterior and posterior cruciate ligaments are intact and unremarkable. COLLATERAL LIGAMENTS: Some increased signal present along the medial collateral ligament could indica te underlying strain, ligaments are intact. Suspect popliteus tendon strain, there is local fluid sig nal EXTENSOR MECHANISM: Visualized quadriceps and patellar tendons are intact. EFFUSION: Suprapatellar joint effusion is present POPLITEAL CYST: No popliteal/baltazar cyst. TRICOMPARTMENT SPACES: Maintained CARTILAGE: Unremarkable BONE MARROW SIGNAL: No focal abnormal marrow signal is appreciated. OTHER: IMPRESSION: There is a sizable joint effusion. Correlate for possible medial collateral ligament strain, some i ncreased distance noted at the meniscal capsular junction with some local edema. Possible longitudina l tear at the insertion of the meniscal femoral ligament, popliteus tendon strain.
== END | disposition home or self-care (01) ==
LOC: RADMRIMAIN 10:30
PROVIDERS: ATTEND Orthopaedic Surgery
DX: M25.461 Effusion, right knee (principal)

== ENCOUNTER 2020-11-01 07:15 | Emergency (ER) | payer OTHER ==
[2020-11-01 07:20] VITALS: RESP 18
[2020-11-01] MEDS ORDERED: ONDANSETRON 4 MG/2 ML VIAL IVP STA (07:43)
[2020-11-01] MEDS ORDERED: SODIUM CHLORIDE 0.9% 1,000 ML IV ONE (07:43)
[2020-11-01] MEDS ORDERED: diphenhydrAMINE 50 MG/ML 1 ML VIAL IVP STA (07:43)
[2020-11-01] MEDS ORDERED: ORPHENADRINE 30 MG/ML 2 ML VIAL IVP STA (07:44)
--- NOTE | 2020-11-01 07:49 | ED ---
General Adult HPI - General Chief complaint: Headache Stated complaint: Headache, Knee pain Time Seen by Provider: 11/01/20 07:35 Source: patient, RN notes reviewed Mode of arrival: wheelchair Limitations: no limitations - History of Present Illness Initial comments: 25-year-old male presents emergency Department with chief complaint of headache, nausea vomiting. Patient states that he's had headache for last 1 week states that it has been persistent for last 24 hours. He states he was on the right and left foot states is now only on the left. Patient states that it was only in the morning but again is now persistent. Patient denies any blurred vision no photophobia. Patient has a history of chronic headaches. Patient denies any neck pain neck stiffness no fever or chills but states he's felt achy had a total. He's had a slight cough. Denies any chest pain palpitations. - Related Data Home Medications Medication Instructions Recorded Confirmed [id number] 2 tab PO Q4HR PRN 11/01/20 11/01/20 [Excedrin] Ibuprofen [Advil] 800 mg PO Q6H PRN 11/01/20 11/01/20 Previous Rx's Medication Instructions Recorded Amoxicillin/Potassium Clav 1 tab PO Q12HR #20 tab 11/01/20 [Augmentin 875-125 Tablet] Allergies Allergy/AdvReac Type Severity Reaction Status Date / Time No Known Allergies Allergy Verified 11/01/20 08:22 Review of Systems ROS Statement: Those systems with pertinent positive or pertinent negative responses have been documented in the HPI. ROS Other: All systems not noted in ROS Statement are negative. Past Medical History Past Medical History: No Reported History History of Any Multi-Drug Resistant Organisms: None Reported Past Surgical History: No Surgical Hx Reported Past Psychological History: No Psychological Hx Reported Smoking Status: Current every day smoker Past Alcohol Use History: Rare Past Drug Use History: None Reported General Exam Limitations: no limitations General appearance: alert, in no apparent distress Head exam: Present: atraumatic, normocephalic, normal inspection Eye exam: Present: normal appearance, PERRL, EOMI. Absent: scleral icterus, conjunctival injection, periorbital swelling ENT exam: Present: normal exam, normal oropharynx, mucous membranes moist, TM's normal bilaterally Neck exam: Present: normal inspection. Absent: tenderness, meningismus, lymphadenopathy Respiratory exam: Present: wheezes (Minimal). Absent: normal lung sounds bilaterally, respiratory distress, rales, rhonchi, stridor Cardiovascular Exam: Present: regular rate, normal rhythm, normal heart sounds. Absent: systolic murmur, diastolic murmur, rubs, gallop, clicks GI/Abdominal exam: Present: soft, normal bowel sounds. Absent: distended, tenderness, guarding, rebound, rigid Extremities exam: Present: normal inspection, full ROM, normal capillary refill, other (Upper and lower extremity strength equal bilaterally neurovascular intact). Absent: tenderness, pedal edema, joint swelling, calf tenderness Neurological exam: Present: alert, oriented X3, CN II-XII intact, normal gait, reflexes normal, other (Finger to nose intact bilaterally, normal [id number]). Absent: motor sensory deficit Skin exam: Present: warm, dry, intact, normal color. Absent: rash Course Vital Signs 11/01/20 11/01/20 07:17 08:30 Temperature 97.5 F L Pulse Rate 83 74 Respiratory 18 18 Rate Blood Pressure 108/69 102/61 O2 Sat by Pulse 97 97 Oximetry Medical Decision Making - Medical Decision Making CT shows evidence of acute sinusitis. Patient states is improved after migraine cocktail. Patient we discharged in stable condition return parameters were discussed. - Lab Data Lab Results 11/01/20 Range/Units 08:30 Coronavirus (PCR) Not Detected (Not Detectd) Disposition Clinical Impression: Migraine headache, Sinusitis Disposition: HOME SELF-CARE Condition: Stable Instructions (If sedation given, give patient instructions): Acute Headache (ED) Additional Instructions: Please return to the Emergency Department if symptoms worsen or any other concerns. Prescriptions: Amoxicillin/Potassium Clav [Augmentin 875-125 Tablet] 1 tab PO Q12HR #20 tab Is patient prescribed a controlled substance at d/c from ED?: No Referrals: None,Stated [Primary Care Provider] - 1-2 days Time of Disposition: 09:28
--- NOTE | 2020-11-01 08:54 | CT ---
EXAMINATION TYPE: CT brain wo con DATE OF EXAM: 11/01/2020 COMPARISON: None HISTORY: 25-year-old male Headache for one week TECHNIQUE: Examination was done in axial plane without intravenous contrast. Coronal and sagittal r econstructions performed. CT DLP: 1048.4 mGycm Automated exposure control for dose reduction was used. FINDINGS: There is no evidence of acute intracranial hemorrhage, acute ischemic changes, mass, mass-effect, or extra-axial fluid collection. There is no effacement of cerebral sulci or basal subarachnoid cister ns. There is no hydrocephalus. There is no midline shift. Arriaga-white matter distinction is preserv ed. There is some layering fluid in the right frontal sinus. Mastoid air cells well pneumatized. Visualiz ed orbits and globes appear intact. Patient's gaze is slightly divergent. This may reflect underlying strabismus. IMPRESSION: 1. No acute intracranial abnormality seen. 2. Layering fluid in the right frontal sinus could reflect an acute sinusitis. Clinically correlate.
[2020-11-01] MEDS ORDERED: KETOROLAC 15 MG/ML 1 ML VIAL IVP STA (09:03)
[2020-11-01 09:35] VITALS: BP 101/59; PULSE 77; TEMP 98
== END 2020-11-01 09:35 | disposition home or self-care (01) ==
LOC: EC 07:15
DX: G43.909 Migraine, unspecified, not intractable, without status migrainosus (principal); J32.9 Chronic sinusitis, unspecified; F17.200 Nicotine dependence, unspecified, uncomplicated; Z20.822 Contact with and (suspected) exposure to COVID-19
CPT/HCPCS: 87635; 70450; 99284; 96374; 96375 ×3; 96361; J1200; J2360; J2405; J1885

== ENCOUNTER 2021-02-20 08:37 | Emergency (ER) | payer OTHER ==
[2021-02-20] MEDS ORDERED: diphenhydrAMINE 50 MG/ML 1 ML VIAL IVP STA (09:49)
[2021-02-20] MEDS ORDERED: SODIUM CHLORIDE 0.9% 1,000 ML IV STA (09:49)
[2021-02-20] MEDS ORDERED: ONDANSETRON 4 MG/2 ML VIAL IVP STA (09:49)
[2021-02-20] MEDS ORDERED: KETOROLAC 15 MG/ML 1 ML VIAL IVP STA (09:49)
--- NOTE | 2021-02-20 10:12 | ED ---
General Adult HPI - General Chief complaint: Neck Pain/Injury Stated complaint: L side numbness, neck pain Time Seen by Provider: 02/20/21 09:25 Source: patient Mode of arrival: ambulatory Limitations: no limitations - History of Present Illness Initial comments: Patient is a 25-year-old male presenting to the emergency Department with complaints of neck pain as well as a migraine for the past 2 days. Patient states over the past 1-2 months he has been waking up each morning with neck pain, pain on both sides of his neck as well. He states he normally states on the side. He states over the past couple days ago and waking up with more neck pain and feels like is causing a migraine. He tried taking ibuprofen yesterday without improvement in his pain. Today his migraine is worse, rates as 7/10, he is nauseous and had a few episodes of vomiting today as well. He denies any injuries or trauma, no falls. He's had no previous neck surgeries. He denies any numbness and tingling to his extremities, no chest pain or shortness of breath, no fevers or chills. He has no further complaints at this time. Upon arrival to the ER, his vitals are stable. - Related Data Previous Rx's Medication Instructions Recorded Cyclobenzaprine [Flexeril] 5 mg PO TID PRN #15 tablet 02/20/21 Allergies Allergy/AdvReac Type Severity Reaction Status Date / Time No Known Allergies Allergy Verified 02/20/21 10:46 Review of Systems ROS Statement: Those systems with pertinent positive or pertinent negative responses have been documented in the HPI. ROS Other: All systems not noted in ROS Statement are negative. Past Medical History Past Medical History: No Reported History History of Any Multi-Drug Resistant Organisms: None Reported Past Surgical History: No Surgical Hx Reported Past Psychological History: No Psychological Hx Reported Smoking Status: Current every day smoker Past Alcohol Use History: Rare Past Drug Use History: None Reported General Exam - General Exam Comments Initial Comments: GENERAL: Patient is well-developed and well-nourished. Patient is nontoxic and in mild distress. HEAD: Atraumatic, normocephalic. EYES: Pupils equal round and reactive to light, extraocular movements intact, sclera anicteric, conjunctiva are normal. Eyelids were unremarkable. ENT: TMs normal, nares patent, oropharynx clear without exudates. Moist mucous membranes. NECK: Normal range of motion, supple without lymphadenopathy or JVD. Mild pain with palpation on the cervical spine, paraspinals. He is tight on both upper traps. LUNGS: Unlabored respirations. Breath sounds clear to auscultation bilaterally and equal. No wheezes rales or rhonchi. HEART: Regular rate and rhythm without murmurs, rubs or gallops. ABDOMEN: Soft, nontender, normoactive bowel sounds. No guarding, no rebound. No masses appreciated. : Deferred MUSCULOSKELETAL: Normal extremities with adequate strength and normal range of motion, no pitting or edema. No clubbing or cyanosis. NEUROLOGICAL: Patient is alert and oriented x 3. Motor and sensory are also intact. Cranial nerves II through XII grossly intact. Symmetrical smile. Normal speech, normal gait. PSYCH: Normal mood, normal affect. SKIN: Warm, Dry, normal turgor, no rashes or lesions noted. Limitations: no limitations Course Vital Signs 02/20/21 08:54 Temperature 98.3 F Pulse Rate 88 Respiratory 20 Rate Blood Pressure 132/87 O2 Sat by Pulse 99 Oximetry Medical Decision Making - Medical Decision Making Patient is a 25-year-old male here with neck pain that has been progressive over the past 1-2 months and also 2 days of a migraine. He states the tightness is causing migraine. Vitals are stable, exam reveals no alarming symptoms, no acute neuro deficits. X-ray of the C-spine shows some joint space narrowing, arthropathy. No alarming findings. Patient was given pain control, Zofran and Benadryl, eyes resting comfortably. I discussed with patient that his neck tightness/spasm most likely is causing these headaches and migraines. I recommended continuing with ibuprofen and Tylenol alternating for pain control, trial of muscle relaxer at nighttime. Recommended following up primary care physician. P to the area as well. He is stable for discharge and he is in agreement with this plan of care. Return parameters were discussed with him and he verbalized understanding. Case discussed with Dr. Chan. Disposition Clinical Impression: Neck pain, Headache Disposition: HOME SELF-CARE Condition: Stable Instructions (If sedation given, give patient instructions): Neck Pain (ED) Additional Instructions: Please return to the Emergency Department if symptoms worsen or any other concerns. Alternate between Tylenol and ibuprofen for any discomfort. Trial of muscle relaxers at nighttime for muscle tightness. Use heat to the area, warm showers. Follow up with your primary care physician. Prescriptions: Cyclobenzaprine [Flexeril] 5 mg PO TID PRN #15 tablet PRN Reason: Muscle Spasm Is patient prescribed a controlled substance at d/c from ED?: No Referrals: None,Stated [Primary Care Provider] - 1-2 days Sandra Harry MD [STAFF PHYSICIAN] - 1-2 days Time of Disposition: 10:55
--- NOTE | 2021-02-20 10:26 | XR ---
EXAMINATION TYPE: XR cervical spine comp DATE OF EXAM: 02/20/2021 COMPARISON: None HISTORY: 25-year-old male left-sided numbness and pain with headaches TECHNIQUE: 6 views FINDINGS: No predental space widening or prevertebral soft tissue swelling. Slight reversal of the normal cervi cesario lordosis but with preserved alignment. Mild facet arthropathy mid cervical spine. Disc interspace s are maintained. Mild bony neuroforaminal narrowing on the right at C5-C6 and C6-C7. On the odontoid view, there may be some asymmetric narrowing of joint space along the left C1-C2 lateral mass articu lation. IMPRESSION: 1. Suggestion of some asymmetric joint space narrowing along the left C1-C2 lateral mass articulation on a degenerative basis. 2. Mild facet arthropathy mid cervical spine. Mild bony neuroforaminal narrowing on the right at C5-C 6 and C6-C7. 3. Reversal of the normal cervical lordosis could be positional or due to muscle spasm.
[2021-02-20 11:04] VITALS: BP 116/61; PULSE 80; RESP 18; TEMP 98.1
== END 2021-02-20 11:03 | disposition home or self-care (01) ==
LOC: EC 08:37
DX: M54.2 Cervicalgia (principal); R51.9 Headache, unspecified; R11.2 Nausea with vomiting, unspecified; F17.200 Nicotine dependence, unspecified, uncomplicated
CPT/HCPCS: 72050; 99284; 96374; 96375; 96361; J1200; J2405; J1885

== ENCOUNTER 2021-04-14 06:01 | Emergency (ER) | payer OTHER ==
[2021-04-14] MEDS ORDERED: diphenhydrAMINE 50 MG/ML 1 ML VIAL IVP STA (06:27)
[2021-04-14] MEDS ORDERED: KETOROLAC 15 MG/ML 1 ML VIAL IVP STA (06:27)
[2021-04-14] MEDS ORDERED: SODIUM CHLORIDE 0.9% 500 ML 500 ML IV ONE (06:28)
--- NOTE | 2021-04-14 06:36 | ED ---
General Adult HPI - General Chief complaint: Headache Stated complaint: Facial Numbness Time Seen by Provider: 04/14/21 06:13 Source: patient, family, RN notes reviewed Mode of arrival: ambulatory Limitations: no limitations - History of Present Illness Initial comments: This a 25-year-old male presents emergency Department chief complaint of headache. Patient states never issues over the last several months with similar complaints. Patient has been seen here in emergency department along with other emergency departments including last week his seen and admitted at [facility] for rule out meningitis. Patient had facial numbness complaint of headache. Patient's workup came back negative and patient was diagnosed with acute migraine. Patient states his current headache no visual disturbance no focal weakness. Patient has no from with neck pain or neck stiffness. Patient has had some neck issues in which she's had recent x-rays and some emergency department. Patient has not followed up with PCP or primary care physician as he was directed. Patient denies any current fever chills or night sweats. Patient offers no complaints is unknown current medications. - Related Data Home Medications Medication Instructions Recorded Confirmed No Known Home Medications 04/14/21 04/14/21 Allergies Allergy/AdvReac Type Severity Reaction Status Date / Time No Known Allergies Allergy Verified 04/14/21 06:53 Review of Systems ROS Statement: Those systems with pertinent positive or pertinent negative responses have been documented in the HPI. ROS Other: All systems not noted in ROS Statement are negative. Past Medical History Past Medical History: No Reported History History of Any Multi-Drug Resistant Organisms: None Reported Past Surgical History: No Surgical Hx Reported Past Psychological History: No Psychological Hx Reported Smoking Status: Current every day smoker Past Alcohol Use History: Rare Past Drug Use History: None Reported General Exam Limitations: no limitations General appearance: alert, in no apparent distress Head exam: Present: atraumatic, normocephalic, normal inspection Eye exam: Present: normal appearance, PERRL, EOMI. Absent: scleral icterus, conjunctival injection, periorbital swelling ENT exam: Present: normal exam, normal oropharynx, mucous membranes moist Neck exam: Present: normal inspection, full ROM. Absent: tenderness, meningismus, lymphadenopathy Respiratory exam: Present: normal lung sounds bilaterally. Absent: respiratory distress, wheezes, rales, rhonchi, stridor Cardiovascular Exam: Present: regular rate, normal rhythm, normal heart sounds. Absent: systolic murmur, diastolic murmur, rubs, gallop, clicks Extremities exam: Present: normal inspection, full ROM, normal capillary refill. Absent: tenderness, pedal edema, joint swelling, calf tenderness Neurological exam: Present: alert, oriented X3, CN II-XII intact, reflexes normal. Absent: motor sensory deficit Skin exam: Present: warm, dry, intact, normal color. Absent: rash Course Vital Signs 04/14/21 06:02 Temperature 98.6 F Pulse Rate 89 Respiratory 22 Rate Blood Pressure 106/75 O2 Sat by Pulse 96 Oximetry Medical Decision Making - Medical Decision Making Patient was reevaluated states that his headache is improving has no facial symptoms no focal weakness. Patient will be discharged in stable condition return parameters were discussed. Disposition Clinical Impression: Migraine headache Disposition: HOME SELF-CARE Condition: Stable Instructions (If sedation given, give patient instructions): Acute Headache (ED) Additional Instructions: Please return to the Emergency Department if symptoms worsen or any other concer ns. Is patient prescribed a controlled substance at d/c from ED?: No Referrals: None,Stated [Primary Care Provider] - 1-2 days Justice Crowley DO [STAFF PHYSICIAN] - 1-2 days Raymond Smith MD [REFERRING] - 1-2 days Charlie Sofia MD [Medical Doctor] - 1-2 days Time of Disposition: 07:12
[2021-04-14 07:41] VITALS: BP 107/69; PULSE 96; RESP 18; TEMP 98
== END 2021-04-14 07:41 | disposition home or self-care (01) ==
LOC: EC 06:01
DX: G43.909 Migraine, unspecified, not intractable, without status migrainosus (principal); F17.200 Nicotine dependence, unspecified, uncomplicated
CPT/HCPCS: 93005; 99284; 96374; 96375; J1200; J1885; J1790

== ENCOUNTER 2021-05-31 12:13 | Emergency (ER) | payer OTHER ==
[2021-05-31 12:17] VITALS: RESP 18
[2021-05-31] MEDS ORDERED: MORPHINE SULFATE 4 MG/ML SYRINGE IM STA (13:37)
[2021-05-31] MEDS ORDERED: KETOROLAC 15 MG/ML 1 ML VIAL IM STA (13:37)
--- NOTE | 2021-05-31 13:48 | ED ---
General Adult HPI - General Chief complaint: Extremity Injury, Lower Stated complaint: Rt knee swelling Time Seen by Provider: 05/31/21 13:31 Source: patient, RN notes reviewed, old records reviewed Mode of arrival: wheelchair Limitations: no limitations - History of Present Illness Initial comments: 25-year-old male presenting with right knee pain and swelling. Patient has had recurrent swelling in this knee. He was seen by orthopedics about one year ago had an MRI at 10 over the fluid analysis. He states that over the past 24 hours this has recurred. Denies fever. He does have significant pain associated this. He denies any new injury or overuse. He states this is exactly the same as previous knee issue. - Related Data Previous Rx's Medication Instructions Recorded HYDROcodone/APAP 5-325MG [[place] 1 tab PO Q6HR PRN #12 tab 05/31/21 5-325] Ibuprofen [Motrin] 600 mg PO Q8HR PRN #24 tab 05/31/21 Allergies Allergy/AdvReac Type Severity Reaction Status Date / Time No Known Allergies Allergy Verified 05/31/21 12:15 Review of Systems ROS Statement: Those systems with pertinent positive or pertinent negative responses have been documented in the HPI. ROS Other: All systems not noted in ROS Statement are negative. Past Medical History Past Medical History: No Reported History History of Any Multi-Drug Resistant Organisms: None Reported Past Surgical History: No Surgical Hx Reported Past Psychological History: No Psychological Hx Reported Smoking Status: Current every day smoker Past Alcohol Use History: Rare Past Drug Use History: None Reported General Exam Limitations: no limitations General appearance: alert, in no apparent distress Head exam: Present: atraumatic, normocephalic Eye exam: Present: normal appearance, PERRL ENT exam: Present: normal exam Neck exam: Present: normal inspection. Absent: tenderness, meningismus Respiratory exam: Present: normal lung sounds bilaterally. Absent: respiratory distress, wheezes Cardiovascular Exam: Present: regular rate, normal rhythm GI/Abdominal exam: Present: soft. Absent: distended, tenderness, guarding Extremities exam: Present: normal capillary refill, joint swelling (Patient has right knee effusion minimal warmth, no erythema). Absent: pedal edema Neurological exam: Present: alert, oriented X3, CN II-XII intact. Absent: motor sensory deficit Psychiatric exam: Present: normal affect, normal mood Skin exam: Present: warm, dry, intact Course Vital Signs 05/31/21 12:15 Temperature 98.6 F Pulse Rate 101 H Respiratory 18 Rate Blood Pressure 121/85 O2 Sat by Pulse 100 Oximetry Medical Decision Making - Medical Decision Making 25-year-old male with recurrent right knee infection. Given the history and exam I have a low suspicion for spontaneous septic arthritis. Patient is afebrile and otherwise well-appearing. I do feel this patient needs more urgent follow-up with orthopedics. I discussed case with Moses alberts for advanced orthopedics and he agrees with outpatient follow-up and strict return parameters at this time. Patient previously had arthrocentesis, MRI, x-ray, MRI showed degenerative changes with meniscal tear. Disposition Clinical Impression: Knee effusion, right Disposition: HOME SELF-CARE Condition: Good Instructions (If sedation given, give patient instructions): Swollen Knee Joint (ED) Prescriptions: Ibuprofen [Motrin] 600 mg PO Q8HR PRN #24 tab PRN Reason: Pain HYDROcodone/APAP 5-325MG [[place] 5-325] 1 tab PO Q6HR PRN #12 tab PRN Reason: Pain Is patient prescribed a controlled substance at d/c from ED?: No Referrals: None,Stated [Primary Care Provider] - 1-2 days Rush Sue MD [STAFF PHYSICIAN] - 1-2 days Time of Disposition: 13:48
[2021-05-31 14:29] VITALS: BP 139/78; PULSE 98; TEMP 98.4
== END 2021-05-31 14:28 | disposition home or self-care (01) ==
LOC: EC 12:13
DX: M25.461 Effusion, right knee (principal); F17.200 Nicotine dependence, unspecified, uncomplicated
CPT/HCPCS: 99283; 96372; J2270; J1885

== ENCOUNTER → 2021-07-11 | Outpatient (CLI) | payer OTHER ==
--- NOTE | 2021-07-12 03:36 | MR ---
EXAMINATION TYPE: MR knee RT wo con DATE OF EXAM: 07/11/2021 COMPARISON: 08/18/2020 HISTORY: Right knee pain Multiplanar multiecho imaging of the right knee without contrast. The anterior and posterior cruciate ligaments are intact. There is a knee joint effusion. There is so ft tissue edema around the knee. There is narrowing of the lateral joint space. There is mild spurrin g of the femoral and tibial condyles. There is some mild lateral displacement of the lateral meniscus . There is minimal subchondral edema in the medial aspect medial tibial condyle. There is no evidence of a fracture. I see no focal bone destruction. There is some increased signal in the medial collate ral ligament. IMPRESSION: There is some mild spurring of the femoral and tibial condyles. There is some mild osteoarthritic trae nges in the lateral joint space. No evidence of any significant meniscal tear. Knee joint effusion. M ild soft tissue edema around the knee. There is probably some nonspecific synovitis. Mild edema or rob ne bruise in the medial tibial condyle. There is at least partial tear of the medial collateral ligam ent. Joint effusion is smaller than old exam. There is increased tear of the medial collateral ligament co mpared to old exam.
== END | disposition home or self-care (01) ==
LOC: RADMRIMAIN 13:22
PROVIDERS: ATTEND Orthopaedic Surgery
DX: S83.411A Sprain of medial collateral ligament of right knee, initial encounter (principal); M25.461 Effusion, right knee; X58.XXXA Exposure to other specified factors, initial encounter

== ENCOUNTER → 2021-09-19 | Outpatient (CLI) | payer OTHER ==
[2021-09-20 00:03] LABS: Anion Gap 13.1 mmol/L (10.00-18.00); Carbon Dioxide 22.9 mmol/L (20.0-27.5); Potassium 4.2 mmol/L (3.5-5.5)
[2021-09-20 01:07] LABS: Eosinophils # (A) 0.63 X 10*3/uL (0.04-0.35); Eosinophils % (A) 6.2 %; HCT 48.2 % (39.6-50.0); HGB 14.9 g/dL (13.0-17.0); Lymphocytes # (A) 2.59 X 10*3/uL (0.90-5.00); Lymphocytes % (A) 25.6 %; MCH 28.2 pg (27.0-32.0); MCHC 30.9 g/dL (32.0-37.0); MCV 91.1 fL (80.0-97.0); Mean Platelet Volume 9.6 fL (9.5-12.2); Monocytes # (A) 0.72 X 10*3/uL (0.20-1.00); Monocytes % (A) 7.1 %; Neutrophils # (A) 6.05 X 10*3/uL (1.80-7.70); Neutrophils % (A) 59.7 %; Platelet Count 389 X 10*3/uL (140-440); RBC 5.29 X 10*6/uL (4.40-5.60); RDW 14.3 % (11.5-14.5); WBC 10.13 X 10*3/uL (4.50-10.00)
== END | disposition home or self-care (01) ==
LOC: LABPAT 14:00
PROVIDERS: ATTEND Orthopaedic Surgery
DX: Z01.812 Encounter for preprocedural laboratory examination (principal); M23.91 Unspecified internal derangement of right knee
CPT/HCPCS: 36415; 80051; 85025

== ENCOUNTER 2021-09-28 15:01 | Day surgery (SDC) | payer OTHER ==
[2021-09-26 09:40] VITALS: BMI 31.5
--- NOTE | 2021-09-27 20:15 | HP ---
HISTORY AND PHYSICAL REASON FOR ADMISSION: Surgery scheduled for 09/28/2021 HISTORY OF PRESENT ILLNESS: Mervin Oliveros is a 25-year-old patient seen with progressive right knee pain. We discussed options for treatment. He elected to proceed with right knee arthroscopy. Consent obtained. PAST MEDICAL HISTORY: Noncontributory. SURGICAL HISTORY: Noncontributory. MEDICATIONS: Ibuprofen. Tylenol. ALLERGIES: None. SOCIAL HISTORY: Smokes cigarettes. PHYSICAL EVALUATION: Right knee range of motion is -2/3-115. There is a large effusion present. Tenderness medial joint line. Positive medial Hung's. Ligaments stable. Hip rotation without pain. Distal neurovascular exam intact. RADIOGRAPHS: Right knee radiographs revealed mild osteoarthritic changes. MRI right knee revealed a large effusion and mild osteoarthritis. IMPRESSION: Internal derangement of right knee with osteochondral tear. PLAN: Right knee arthroscopy with chondroplasty and debridement. Surgery scheduled for 09/28/2021. MMODL / IJN: [id number] /
[2021-09-28] MEDS ORDERED: ONDANSETRON 4 MG/2 ML VIAL ONE (15:27)
[2021-09-28 15:32] VITALS: RESP 16
[2021-09-28] MEDS ORDERED: LIDOCAINE 1% (10MG/ML) FOR IV START INTRADERMA ONE (15:35)
[2021-09-28] MEDS ORDERED: LACTATED RINGERS 1,000 ML IV ONE ×3 (15:35→17:50)
[2021-09-28] MEDS ORDERED: DEXAMETHASONE SOD PHOSPHATE 4 MG/ML 1 ML VIAL IV ONE (15:45)
[2021-09-28] MEDS ORDERED: LIDOCAINE 1% INJ 10MG/ML (20 ML MDV) ONE (16:39)
[2021-09-28] MEDS ORDERED: MIDAZOLAM 2 MG/2 ML VIAL ONE (16:39)
[2021-09-28] MEDS ORDERED: fentaNYL (PF) 50 MCG/ML 2 ML AMP ONE (16:39)
[2021-09-28] MEDS ORDERED: HYDROmorphone (PF) 1 MG/ML ONE (16:39)
[2021-09-28] MEDS ORDERED: PROPOFOL 10 MG/ML 20 ML VIAL IV ONE (16:39)
[2021-09-28] MEDS ORDERED: BUPIVACAINE (PF) 0.25% 30 ML VIAL MISCELLANE ONE ×2 (16:44→17:15)
--- NOTE | 2021-09-28 17:27 | P.OP ---
Date of Procedure: 09/28/21 Preoperative Diagnosis: Internal derangement right knee Postoperative Diagnosis: 1. Tear medial and lateral meniscus right knee 2. Reactive synovitis medial, lateral and suprapatellar compartments right knee Procedure(s) Performed: 1. Arthroscopic partial medial and lateral meniscectomy right knee 2. Arthroscopic partial synovectomy medial, lateral and suprapatellar compartments right knee Anesthesia: GETA, local Surgeon: Sheldon Ledesma Estimated Blood Loss (ml): 6 Pathology: none sent Condition: stable Disposition: PACU Indications for Procedure: 25-year-old patient seen with progressive right knee pain. After treatment options were discussed, he elected to proceed with arthroscopy. Operative Findings: See description of procedure Description of Procedure: Patient was taken to the operative suite. Patient underwent a general anesthetic by the department of anesthesia. Patient was given preoperative antibiotics. The right lower extremity was placed in a well-padded arthroscopic leg de leon. The right leg was prepped and draped in the normal sterile orthopedic fashion. A lateral parapatellar and suprapatellar incision was made. Trochars were inserted. Arthroscopy was initiated. Suprapatellar pouch revealed diffuse thick reactive synovitis. The patellofemoral joint appeared to articulate congruently. There was chondromalaciapresent. The scope was guided into the medial gutter. No loose bodies or plica were identified The scope was then guided into the medial compartment. A medial parapatellar incision was made. Trocar inserted followed by probe. There were radial tears involving the posterior horn and midbody medial meniscus. There was no cystic and chondromalacia. There was thick reactive synovitis anteriorly. I performed a partial medial meniscectomy getting down to stable meniscal tissue. I performed a partial synovectomy. Shaver was removed. The residual meniscus was stable. There was good decompression of the synovitis. Scope and probe were then guided into the intercondylar notch. Cruciates were identified, probed and found to be stable. The scope and probe were then guided into lateral compartment. There were some small radial tears involving the posterior horn lateral meniscus. There was thick reactive synovitis anteriorly. There was no significant chondromalacia. I performed a partial lateral meniscectomy getting down to stable meniscal tissue. I performed a partial synovectomy decompressing the reactive synovitis. The shaver was removed. The residual meniscus was stable. There was good decompression of synovitis. The scope was in guided back into the suprapatellar compartment. I introduced a motorized shaver into the suprapatellar compartment. I performed a partial synovectomy decompressing the reactive synovitis. Shaver was removed. There was good decompression of synovitis. I now took one more look on the entire knee, no residual debris. Instruments were now removed from the joint. The joint was infiltrated with .25% Marcaine. Steri-Strips were applied to the portal sites. Sterile dressings were applied. The patient was placed into a STEWART hose. No tourniquet was utilized. The patient was awakened, transferred to a bed and taken to recovery stable satisfactory condition.
[2021-09-28 17:33] VITALS: TEMP 97.8
[2021-09-28] MEDS ORDERED: HYDROmorphone 0.5 MG/0.5 ML SYRINGE IVP ONE (17:46)
[2021-09-28] MEDS ORDERED: KETOROLAC 15 MG/ML 1 ML VIAL IVP ONE (18:09)
[2021-09-28 18:50] VITALS: BP 109/68; PULSE 74
== END 2021-09-28 19:04 | disposition home or self-care (01) ==
LOC: OR 15:01
PROVIDERS: ATTEND Orthopaedic Surgery
DX: M23.91 Unspecified internal derangement of right knee (principal)
CPT/HCPCS: 29880; J1100; J0690; J2405; J1885; J1170

== ENCOUNTER 2021-12-29 17:52 | Emergency (ER) | payer OTHER ==
[2021-12-29 18:02] VITALS: BP 126/87; PULSE 73; RESP 18; TEMP 97.9
[2021-12-29] MEDS ORDERED: PENICILLIN VK 500MG STARTER 4 TAB BTL PO STA (21:29)
[2021-12-29] MEDS ORDERED: ACET/COD 300 MG/30 MG STARTER PACK 6 TAB BTL PO STA (21:29)
--- NOTE | 2021-12-29 21:34 | ED ---
ENT HPI - General Chief complaint: Dental/Oral Stated complaint: L side of face pain Time Seen by Provider: 12/29/21 21:25 Source: patient, RN notes reviewed Mode of arrival: ambulatory Limitations: no limitations - History of Present Illness Initial comments: Physical pleasant 26-year-old male presents from his pharmacy several days of worsening pain to his wisdom tooth on the lower left side, tooth #17. Patient states he is having aching throbbing pain which is exacerbated by chewing, eating, and when area is touched. Denies any fever or chills. Positive cigarette smoker. No immunosuppression. No headache, no fever or chills, no changes in vision or hearing, no sore throat or difficulty with speech, no neck pain, no chest pain or shortness of breath, no abdominal pain, no nausea or vomiting, no changes in urination or bowel movements, no numbness or tingling, no extremity pain, no skin rashes or lesions. MD complaint: tooth pain - Related Data Home Medications Medication Instructions Recorded Confirmed Acetaminophen [Tylenol Extra 500 - 1,000 mg PO DIRECTED PRN 09/26/21 09/26/21 Strength] Previous Rx's Medication Instructions Recorded Ibuprofen [Motrin] 600 mg PO Q8HR PRN #24 tab 05/31/21 HYDROcodone/APAP 5-325MG [[place] 1 tab PO Q6HR PRN #15 tab 09/28/21 5-325] Ibuprofen [Motrin] 600 mg PO Q8HR PRN #30 tab 12/29/21 Penicillin V Potassium [Pen Vee K] 500 mg PO QID #38 tablet 12/29/21 Allergies Allergy/AdvReac Type Severity Reaction Status Date / Time No Known Allergies Allergy Verified 09/28/21 15:20 Review of Systems ROS Statement: Those systems with pertinent positive or pertinent negative responses have been documented in the HPI. ROS Other: All systems not noted in ROS Statement are negative. Past Medical History Past Medical History: No Reported History History of Any Multi-Drug Resistant Organisms: None Reported Past Surgical History: No Surgical Hx Reported Past Psychological History: No Psychological Hx Reported Smoking Status: Current every day smoker Past Alcohol Use History: None Reported Past Drug Use History: None Reported General Exam - General Exam Comments Initial Comments: Does not appear to be ill or toxic. No evidence of systemic infection. Limitations: no limitations General appearance: alert, in no apparent distress Head exam: Present: atraumatic, normocephalic, normal inspection Eye exam: Present: normal appearance, PERRL, EOMI. Absent: scleral icterus, conjunctival injection, periorbital swelling ENT exam: Present: normal exam, normal oropharynx, mucous membranes moist, TM's normal bilaterally, normal external ear exam. Absent: mucous membranes dry Expanded Ear exam: Present: normal external inspection. Absent: auricular hematoma Mouth exam: Present: normal external inspection. Absent: drooling, trismus, muffled voice, tongue normal, tongue elevation, laceration Teeth exam: Present: dental caries, dental tenderness # (17), gingival enlargement (Adjacent to 17) Neck exam: Present: normal inspection, full ROM. Absent: tenderness, meningism us, lymphadenopathy Respiratory exam: Present: normal lung sounds bilaterally. Absent: respiratory distress, wheezes, rales, rhonchi, stridor Cardiovascular Exam: Present: regular rate, normal rhythm, normal heart sounds. Absent: systolic murmur, diastolic murmur, rubs, gallop, clicks GI/Abdominal exam: Present: soft, normal bowel sounds. Absent: distended, tenderness, guarding, rebound, rigid Extremities exam: Present: normal inspection, full ROM, normal capillary refill. Absent: tenderness, pedal edema, joint swelling, calf tenderness Back exam: Present: normal inspection Neurological exam: Present: alert, oriented X3, CN II-XII intact Psychiatric exam: Present: normal affect, normal mood Skin exam: Present: warm, dry, intact, normal color. Absent: rash Course Vital Signs 12/29/21 18:00 Temperature 97.9 F Pulse Rate 73 Respiratory 18 Rate Blood Pressure 126/87 O2 Sat by Pulse 98 Oximetry Procedures - Smoking Cessation Time Spent Discussing Smoking Cessation w/Patient (Minutes): 3 Patient Acknowledges Need for Cessation: Yes Medical Decision Making - Medical Decision Making Patient has what appears to be an inflamed dental care to tooth #17, this is eroded into the pulp. No evidence of abscess as of yet. We'll treat with antibiotics and pain medications. Smoking cessation discussed. Patient will follow up with a dentist, he is Yakelin called for an appointment. Patient was told to return to the ER for any signs or symptoms worsen. Told to return immediately if any other problems arise. All questions answered. Treatment plan discussed. Patient in agreement Every effort has been made to ensure accuracy of this dictation. However, due to the limitations of electronic medical records and dictation devices, errors i n charting still occur. Supervising physicians Dr. Whitfield Disposition Clinical Impression: Pain due to dental caries, Cigarette smoker Disposition: HOME SELF-CARE Condition: Stable Instructions (If sedation given, give patient instructions): Toothache (ED), Dental Abscess (ED), How to Stop Smoking (ED) Additional Instructions: Make sure Tom on smoking cessation. Follow up with a dentist as planned. Take the antibiotics until they're gone. You can continue ibuprofen for pain control. Once the acetaminophen/codeine is out you can continue with regular acetaminophen. Take as directed on the bottle. Follow-up with your regular physician as directed. Return to the ER immediately if any symptoms worsen, new symptoms arise, or any other problems develop. Is patient prescribed a controlled substance at d/c from ED?: No If prescribed controlled substance>3 days was MAPS reviewed?: No Referrals: None,Stated [Primary Care Provider] - 1-2 days Time of Disposition: 21:31
== END 2021-12-29 22:38 | disposition home or self-care (01) ==
LOC: EC 17:52
DX: K02.9 Dental caries, unspecified (principal); F17.210 Nicotine dependence, cigarettes, uncomplicated

== ENCOUNTER 2022-05-02 20:39 | Emergency (ER) | payer OTHER ==
[2022-05-02 20:52] VITALS: BP 117/72; PULSE 74; RESP 16; TEMP 98
--- NOTE | 2022-05-02 21:17 | XR ---
EXAMINATION TYPE: XR chest 2V DATE OF EXAM: 05/02/2022 COMPARISON: NONE HISTORY: Chest pain TECHNIQUE: FINDINGS: Heart and mediastinum are normal. Lungs are clear. Diaphragm is normal. Bony thorax appears normal. IMPRESSION: Normal chest.
[2022-05-02 21:18] LABS: Basophils # (A) 0.1 k/uL (0-0.2); Basophils % (A) 1 %; Eosinophils # (A) 0.4 k/uL (0-0.7); Eosinophils % (A) 4 %; HGB 15.5 gm/dL (13.0-17.5); Lymphocytes # (A) 2.5 k/uL (1.0-4.8); Lymphocytes % (A) 30 %; MCH 30.7 pg (25.0-35.0); MCHC 33.1 g/dL (31.0-37.0); MCV 92.8 fL (80.0-100.0); Mean Platelet Volume 6.9; Monocytes # (A) 0.5 k/uL (0-1.0); Monocytes % (A) 5 %; Neutrophils % (A) 58 %; Platelet Count 365 k/uL (150-450); RBC 5.06 m/uL (4.30-5.90); WBC 8.6 k/uL (3.8-10.6)
[2022-05-02 21:27] LABS: INR 0.9 (<1.2); Partial Thromboplastin Time 26.5 sec (22.0-30.0); Prothrombin Time 10.3 sec (9.0-12.0)
[2022-05-02 21:34] LABS: ALT 25 U/L (4-49); AST 24 U/L (17-59); African American GFR (CKD) >90 (>60 ml/min/1.73 sqM); Albumin 4.2 g/dL (3.5-5.0); Alkaline Phosphatase 90 U/L (38-126); Anion Gap 13 mmol/L; Blood Urea Nitrogen 11 mg/dL (9-20); Calcium 8.9 mg/dL (8.4-10.2); Carbon Dioxide 21 mmol/L (22-30); Chloride 104 mmol/L (98-107); Glucose 103 mg/dL (74-99); Non-African American GFR(CKD) >90 (>60 ml/min/1.73 sqM); Potassium 3.9 mmol/L (3.5-5.1); Sodium 138 mmol/L (137-145); Total Bilirubin 0.6 mg/dL (0.2-1.3); Total Protein 7.2 g/dL (6.3-8.2)
--- NOTE | 2022-05-02 22:25 | ED ---
Chest Pain HPI - General Chief Complaint: Chest Pain Stated Complaint: Chest Pain,SOB Time Seen by Provider: 05/02/22 21:38 Source: patient Mode of arrival: wheelchair Limitations: no limitations - History of Present Illness Initial Comments: Patient is a 26-year-old male presenting with chief complaint of chest pain. Patient states that he was taking a nap earlier today, when he woke up he felt sharp pain in the chest. Patient states that after relaxing for a while the pain diminished but did not entirely go away. He denies any recent injury or t rauma. When the pain is at its peak patient admits to some shortness of breath. Denies any palpitations or weakness. No cough, fever, chills, nausea, vomiting, abdominal pain, hematochezia, melena, dysuria, hematuria, urgency, frequency, flank pain, back pain, pain radiating down the arms or up the neck. - Related Data Home Medications Medication Instructions Recorded Confirmed Acetaminophen [Tylenol Extra 500 - 1,000 mg PO DIRECTED PRN 09/26/21 09/26/21 Strength] Previous Rx's Medication Instructions Recorded Ibuprofen [Motrin] 600 mg PO Q8HR PRN #24 tab 05/31/21 HYDROcodone/APAP 5-325MG [[place] 1 tab PO Q6HR PRN #15 tab 09/28/21 5-325] Ibuprofen [Motrin] 600 mg PO Q8HR PRN #30 tab 12/29/21 Penicillin V Potassium [Pen Vee K] 500 mg PO QID #38 tablet 12/29/21 Allergies Allergy/AdvReac Type Severity Reaction Status Date / Time No Known Allergies Allergy Verified 05/02/22 20:49 Review of Systems ROS Statement: Those systems with pertinent positive or pertinent negative responses have been documented in the HPI. ROS Other: All systems not noted in ROS Statement are negative. EKG Findings - EKG Comments: EKG Findings:: Sinus rhythm rate of 74. MO interval 141. QRS duration 87. QT/QTC 375/403. Normal axis. No acute changes when compared to previous EKG Past Medical History Past Medical History: No Reported History History of Any Multi-Drug Resistant Organisms: None Reported Past Surgical History: No Surgical Hx Reported Past Psychological History: No Psychological Hx Reported Smoking Status: Current every day smoker Past Alcohol Use History: None Reported Past Drug Use History: None Reported General Exam Limitations: no limitations General appearance: alert, in no apparent distress Head exam: Present: atraumatic, normocephalic, normal inspection Eye exam: Present: normal appearance, EOMI. Absent: scleral icterus, periorbital swelling Neck exam: Present: normal inspection Respiratory exam: Present: normal lung sounds bilaterally. Absent: respiratory distress, wheezes, rales, rhonchi, stridor Cardiovascular Exam: Present: regular rate, normal rhythm, normal heart sounds. Absent: systolic murmur, diastolic murmur, rubs, gallop, clicks Extremities exam: Present: normal inspection. Absent: pedal edema Neurological exam: Present: alert, oriented X3, CN II-XII intact Psychiatric exam: Present: normal affect, normal mood Skin exam: Present: warm, dry, intact, normal color. Absent: rash Course Vital Signs 05/02/22 20:49 Temperature 98 F Pulse Rate 74 Respiratory 16 Rate Blood Pressure 117/72 O2 Sat by Pulse 98 Oximetry Chest Pain [facility] Patient is a 26-year-old male presenting with chief complaint of chest pain. Pain is sharp in nature, somewhat pleuritic. On examination pain is not repro ducible. CBC shows no leukocytosis or anemia. PT/INR is WNL. Troponin is less than 0.012. Electrolytes are WNL. Normal chest seen on chest x-ray. PERC score of 0. Patient appears stable for discharge with outpatient follow-up at this time. Follow-up with PCP, provided with options for referrals. Report back to ER with any new or worsening symptoms. Discussed return parameters and answered all questions. Patient conveyed verbal understanding and agreed to the plan. I discussed this case in detail with my attending Dr. Tenorio. Disposition Clinical Impression: Costochondral chest pain Disposition: HOME SELF-CARE Condition: Good Instructions (If sedation given, give patient instructions): Chest Pain (ED), Costochondritis (ED) Additional Instructions: Follow-up with PCP, some suggestions have been provided for you. Report back to ER with any new or worsening symptoms. Take Motrin and Tylenol as needed for pain control. Is patient prescribed a controlled substance at d/c from ED?: No Referrals: None,Stated [Primary Care Provider] - 1-2 days Leonela Montano MD [STAFF PHYSICIAN] - 1-2 days Jessica Couch III, MD [STAFF PHYSICIAN] - 1-2 days Time of Disposition: 22:33
[2022-05-02] MEDS ORDERED: KETOROLAC 15 MG/ML 1 ML VIAL IM STA (22:54)
== END 2022-05-02 23:40 | disposition home or self-care (01) ==
LOC: EC 20:39
DX: M94.0 Chondrocostal junction syndrome [Tietze] (principal); F17.200 Nicotine dependence, unspecified, uncomplicated
CPT/HCPCS: 36415; 71046; 80053; 83880; 84484; 85025; 85610; 85730; 93005; 96372; 99285

== ENCOUNTER 2022-06-07 11:03 | Emergency (ER) | payer OTHER ==
[2022-06-07] MEDS ORDERED: HYDROmorphone 0.5 MG/0.5 ML SYRINGE IM STA (11:42)
[2022-06-07] MEDS ORDERED: ONDANSETRON ODT 4 MG TAB PO STA (12:17)
--- NOTE | 2022-06-07 12:35 | CT ---
EXAMINATION TYPE: CT brain cspine wo con CT DLP: 1309.4 mGycm, Automated exposure control for dose reduction was used. DATE OF EXAM: 06/07/2022 12:19 PM COMPARISON: CT brain 11/01/2020. CLINICAL INDICATION:Male, 26 years old with history of fall; Concussion, fall TECHNIQUE: Brain: Multiple axial CT images of the brain were obtained without IV contrast. Cspine: Axial CT images from the skull base to the inferior aspect of T2 we obtained without intraven ous contrast. Coronal and sagittal reformatted images were also reviewed. FINDINGS: Brain: Extra-axial spaces: No abnormal extra-axial fluid collections. Ventricular system: Within normal limits Cerebral parenchyma: No acute intraparenchymal hemorrhage or mass effect. The keenan-white junction is well differentiated. Cerebellum: Unremarkable. Mass effect: No evidence of midline shift. Intracranial vasculature: unremarkable Soft tissues: Normal. Calvarium/osseous structures: No depressed skull fracture. Paranasal sinuses and mastoid air cells: The mastoid air cells are clear. Moderate mucosal thickening of the right frontal sinus. Visualized orbits: Orbital contents are intact. Cervical spine: Fracture: None. Osseous structures: Unremarkable Vertebral alignment: Straightening of the cervical spine which may be due to patient position versus muscle spasm. No spondylolisthesis. Spinal canal/Neural Foramina: No evidence of significant spinal canal narrowing. No evidence for sign ificant neural foraminal stenosis. Neck soft tissues: Prevertebral soft tissues are within normal limits. Other: The airway is patent. The lung apices are clear. IMPRESSION: 1. No acute intracranial process. 2. No evidence of cervical spine fracture.
[2022-06-07 12:46] VITALS: RESP 18
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
[2022-06-07] MEDS ORDERED: ACET/COD 300 MG/30 MG STARTER PACK 6 TAB BTL PO STA (13:04)
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
[2022-06-07 13:31] VITALS: BP 125/76; PULSE 89; TEMP 98.3
== END 2022-06-07 13:31 | disposition home or self-care (01) ==
LOC: EC 11:03
DX: S09.90XA Unspecified injury of head, initial encounter (principal); J34.89 Other specified disorders of nose and nasal sinuses; F17.200 Nicotine dependence, unspecified, uncomplicated; W50.1XXA Accidental kick by another person, initial encounter
CPT/HCPCS: 72125; 70486; 70450; 99284; 96372; J1170

== ENCOUNTER 2022-09-03 18:22 | Emergency (ER) | payer OTHER ==
[2022-09-03 18:53] VITALS: BP 123/74; PULSE 86; RESP 18; TEMP 98
[2022-09-03] MEDS ORDERED: MORPHINE SULFATE 4 MG/ML SYRINGE IM STA (20:12)
--- NOTE | 2022-09-03 20:43 | US ---
EXAMINATION TYPE: US venous doppler duplex LE RT DATE OF EXAM: 09/03/2022 8:08 PM COMPARISON: NONE CLINICAL HISTORY: pain swellinig. Pain and swelling of right knee. Hx of knee surgery 1 year ago. No hx of DVT SIDE PERFORMED: Right TECHNIQUE: The lower extremity deep venous system is examined utilizing real time linear array sonog jimenez with graded compression, doppler sonography and color-flow sonography. VESSELS IMAGED: Common Femoral Vein Deep Femoral Vein Greater Saphenous Vein * Femoral Vein Popliteal Vein Small Saphenous Vein * Proximal Calf Veins (* superficial vessels) Right Leg: Negative for DVT IMPRESSION: No evidence of deep vein thrombosis in the right leg.
--- NOTE | 2022-09-03 20:47 | XR ---
EXAMINATION TYPE: XR knee complete RT DATE OF EXAM: 09/03/2022 COMPARISON: 07/18/2020 HISTORY: Pain and swelling TECHNIQUE: 3 views FINDINGS: There is minimal spurring of the femoral and tibial condyles. I see no fracture nor disloca tion. No significant joint space narrowing. No sign of joint effusion IMPRESSION: Minor degenerative spurring. There is clearing of the knee joint effusion compared to old exam.
--- NOTE | 2022-09-03 21:16 | ED ---
Lower Extremity Injury HPI - General Chief Complaint: Extremity Injury, Lower Stated Complaint: rt leg pain Time Seen by Provider: 09/03/22 20:06 Source: patient, RN notes reviewed Mode of arrival: ambulatory Limitations: no limitations - History of Present Illness Initial Comments: Patient is a 26-year-old male presenting to the emergency room with complaints of pain in his right knee along with right foot and ring ankle noting increase in in his right lower extremity over the last couple of days. He reports that he previously had knee surgery and overall his knee pain was doing well until recently. He denies any injuries, wounds, redness, range of motion impairment or weakness. He denies any chest pain, shortness of breath, abdominal pain, nausea, vomiting, fevers or chills. He has no other significant past medical history with the exception of his previously stated orthopedic surgery. - Related Data Previous Rx's Medication Instructions Recorded Albuterol Inhaler [Ventolin Hfa 2 puff INHALATION Q4HR PRN #8 gm 09/10/22 Inhaler] predniSONE [Deltasone] 20 mg PO BID #8 tab 09/10/22 Allergies Allergy/AdvReac Type Severity Reaction Status Date / Time No Known Allergies Allergy Verified 09/09/22 23:34 Review of Systems ROS Statement: Those systems with pertinent positive or pertinent negative responses have been documented in the HPI. ROS Other: All systems not noted in ROS Statement are negative. Past Medical History Past Medical History: No Reported History History of Any Multi-Drug Resistant Organisms: None Reported Past Surgical History: Orthopedic Surgery Past Psychological History: No Psychological Hx Reported Smoking Status: Current every day smoker Past Alcohol Use History: None Reported Past Drug Use History: None Reported General Exam - General Exam Comments Initial Comments: GENERAL: No acute distress, well developed, well nourished. HEENT: Normocephalic, atraumatic. Pupils equal, round, reactive to light. Moist mucous membranes. LUNGS: No respiratory distress or use of accessory muscles. HEART: Regular rate.. ABDOMEN: Non-distended. BACK: Normal inspection. EXTREMITIES: Right knee full range of motion slight crepitus with movement, no point tenderness. No effusion. Right lower extremity with nonpitting edema, no erythema or wounds. Tenderness to right forefoot. 2+ pedal pulse. NEUROLOGIC: Alert & oriented x 3. CN II-XII grossly intact. PSYCHIATRIC: Normal affect and behavior. DERMATOLOGIC: Skin intact, without rashes or lesions noted. Limitations: no limitations Course Vital Signs 09/03/22 18:51 Temperature 98 F Pulse Rate 86 Respiratory 18 Rate Blood Pressure 123/74 O2 Sat by Pulse 98 Oximetry Medical Decision Making - Medical Decision Making Was pt. sent in by a medical professional or institution (, MART[facility]NEZ, READING INTERVENTION TEACHER, urgent care, hospital, or penitentiary...) When possible be specific @ -No Did you speak to anyone other than the patient for history (EMS, parent, family, police, friend...)? What history was obtained from this source @ -No Did you review nursing and triage notes (agree or disagree)? Why? @ -I reviewed and agree with nursing and triage notes Were old charts reviewed (outside hosp., previous admission, EMS record, old EKG, old radiological studies, urgent care reports/EKG's, penitentiary records)? Report findings @ -No old charts were reviewed Differential Diagnosis (chest pain, altered mental status, abdominal pain women, abdominal pain men, vaginal bleeding, weakness, fever, dyspnea, syncope, headache, dizziness, GI bleed, back pain, seizure, CVA, palpatations, mental health)? @ -Differential Lower Extremity Swelling and Pain: Sprain, osteomyelitis, fracture, dislocation, lower extremity DVT, cellulitis subluxation, this is not meant to be an all-inclusive list. EKG interpreted by me (3pts min.). @ -None done X-rays interpreted by me (1pt min.). @ -X-ray right knee complete demonstrates no fracture or dislocation or effusion. X-ray right ankle complete demonstrates no fracture or dislocation. Soft tissue swelling seen. X-ray right foot complete demonstrates no fracture or dislocation. Mild soft tissue swelling seen. CT interpreted by me (1pt min.). @ -None done U/S interpreted by me (1pt. min.). @ -Completed but not interpreted by me. Radiologist report demonstrates no right lower extremity DVT. What testing was considered but not performed or refused? (CT, X-rays, U/S, labs)? Why? @ -None What meds were considered but not given or refused? Why? @ -None Did you discuss the management of the patient with other professionals (ke moore i.e. , MART[facility]NEZ, READING INTERVENTION TEACHER, lab, RT, psych nurse, social science professor, reducing machine operator, teacher, title officer, director case)? Give summary @ -No Was smoking cessation discussed for >3mins.? @ -No Was critical care preformed (if so, how long)? @ -No Were there social determinants of health that impacted care today? How? (Homelessness, low income, unemployed, alcoholism, drug addiction, transportation, low edu. Level, literacy, decrease access to med. care, usp, rehab)? @ -No Was there de-escalation of care discussed even if they declined (Discuss DNR or withdrawal of care, Hospice)? DNR status @ -No What co-morbidities impacted this encounter? (DM, HTN, Smoking, COPD, CAD, Cancer, CVA, ARF, Chemo, Hep., AIDS, mental health diagnosis, sleep apnea, morbid obesity)? @ -None Was patient admitted / discharged? Hospital course, mention meds given and route, prescriptions, significant lab abnormalities, going to OR and other pertinent info. @ -26-year-old male presenting to the emergency room complains of right knee pain and lower extremity swelling ongoing for several days without any improvement in symptoms despite [id number]-fje-[id number] analgesics. His concern regarding his symptoms due to previous orthopedic arthroscopic surgery on his right knee proximally 1 year ago. No trauma/injury recently. No redness, wounds or range of motion impairment. In the setting of lower extremity swelling and pain in right knee will begin diagnostic imaging with Doppler of the lower extremity along with x-ray of the right knee. Will give morphine for pain. Pain improved with morphine. Doppler negative for DVT. X-ray of the right knee without abnormalities. Will proceed with x-ray of the right foot and ankle in the absence of DVT. X-ray of the right ankle and foot with soft tissue swelling no acute osseous pathology. Education regarding soft tissue swelling and sprain likelihood. Encouraged rest elevation and ice and continued anti-inflammatory use. Encouraged follow-up with both primary care provider and orthopedist if still established. Will discharge home in stable condition with follow-up with his primary care provider in use of [id number] analgesics. Undiagnosed new problem with uncertain prognosis? @ -No Drug Therapy requiring intensive monitoring for toxicity (Heparin, Nitro, Insulin, Cardizem)? @ -No Were any procedures done? @ -No Diagnosis/symptom? @ -Right lower extremity pain and swelling Acute, or Chronic, or Acute on Chronic? @ -Acute Uncomplicated (without systemic symptoms) or Complicated (systemic symptoms)? @ -Complicated Side effects of treatment? @ -No Exacerbation, Progression, or Severe Exacerbation? @ -No Poses a threat to life or bodily function? How? (Chest pain, [place], NH, pneumonia, PE, COPD, DKA, ARF, appy, cholecystitis, CVA, Diverticulitis, Homicidal, Suicidal, threat to staff... and all critical care pts) @ -No Case discussed with Dr. España - Radiology Data Radiology results: report reviewed, image reviewed Disposition Clinical Impression: Right knee pain, Pain in right ankle and joints of right foot Disposition: HOME SELF-CARE Condition: Stable Instructions (If sedation given, give patient instructions): Ankle Sprain (ED), Foot Sprain (ED), Knee Pain (ED) Additional Instructions: You received a dose of morphine to assist with your pain needs to day. Please continue to utilize [id number] ibuprofen as needed for pain along with rest and ice application. Gentle range of motion to both the right knee and right ankle and foot is encouraged. Please follow-up with your primary care provider. Please return to the Emergency Department if symptoms worsen or any other concerns. Is patient prescribed a controlled substance at d/c from ED?: No Referrals: None,Stated [Primary Care Provider] - 1-2 days Time of Disposition: 21:47
--- NOTE | 2022-09-03 21:30 | XR ---
EXAMINATION TYPE: XR ankle complete RT DATE OF EXAM: 09/03/2022 COMPARISON: NONE HISTORY: Pain TECHNIQUE: FINDINGS: There is mild soft tissue swelling around the ankle joint. Ankle mortise is anatomic. No fracture. IMPRESSION: Mild soft tissue swelling. No fracture
--- NOTE | 2022-09-03 21:32 | XR ---
EXAMINATION TYPE: XR foot complete RT DATE OF EXAM: 09/03/2022 COMPARISON: NONE HISTORY: Pain TECHNIQUE: 3 views FINDINGS: Metatarsals are intact. The toes are intact. I see no fracture nor dislocation there is mil d soft tissue swelling of the forefoot. IMPRESSION: Soft tissue swelling. No fracture
== END 2022-09-03 21:54 | disposition home or self-care (01) ==
LOC: EC 18:22
DX: M25.561 Pain in right knee (principal); M25.571 Pain in right ankle and joints of right foot; F17.200 Nicotine dependence, unspecified, uncomplicated
CPT/HCPCS: 99283 ×2; 96372 ×2; 73562; 73610; 73630; 93971; 99284; J2270

== ENCOUNTER 2022-09-09 23:26 | Emergency (ER) | payer OTHER ==
[2022-09-09 23:33] VITALS: TEMP 97.8
--- NOTE | 2022-09-09 23:45 | ED ---
Chest Pain HPI - General Chief Complaint: Chest Pain Stated Complaint: Chest pain, SOB Time Seen by Provider: 09/09/22 23:37 Source: patient Mode of arrival: ambulatory Limitations: no limitations - History of Present Illness Initial Comments: This patient is a 26-year-old man here to be seen about chest pain and dyspnea that have been going on for the past couple of hours. He indicates a tight sensation across the upper chest and up to the base of the neck. He is having a cough with occasional yellow or white sputum. The patient states he was c oncerned because he had a history of developing problems associated with an episode of meningitis few years ago. The patient has not had any of the symptoms of meningitis this time, no headache, neck pain, fever or chills. The patient is not having leg pain or swelling area no change in urine output, no diaphoresis, palpitations, lightheadedness or syncope. MD Complaint: chest pain Onset/Timin -: hour(s) Onset: during rest Pain Location: substernal Pain Radiation: none Severity: moderate Quality: tightness Consistency: constant Improves With: nothing Worsens With: nothing Anginal Symptoms: dyspnea Other Symptoms: cough Treatments Prior to Arrival: none - Related Data Previous Rx's Medication Instructions Recorded Albuterol Inhaler [Ventolin Hfa 2 puff INHALATION Q4HR PRN #8 gm 09/10/22 Inhaler] predniSONE [Deltasone] 20 mg PO BID #8 tab 09/10/22 Allergies Allergy/AdvReac Type Severity Reaction Status Date / Time No Known Allergies Allergy Verified 09/09/22 23:34 Review of Systems ROS Statement: Those systems with pertinent positive or pertinent negative responses have been documented in the HPI. ROS Other: All systems not noted in ROS Statement are negative. Constitutional: Denies: fever, chills Respiratory: Reports: cough, dyspnea, wheezes. Denies: hemoptysis Cardiovascular: Reports: chest pain. 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 Absent: scleral icterus, conjunctival injection Neck exam: Present: normal inspection Respiratory exam: Present: wheezes. Absent: respiratory distress, rales, rhonchi, stridor, chest wall tenderness, accessory muscle use Cardiovascular Exam: Present: regular rate, normal rhythm, normal heart sounds. Absent: systolic murmur, diastolic murmur, rubs, gallop GI/Abdominal exam: Present: soft. Absent: distended, tenderness, guarding, rebound, rigid, mass Extremities exam: Present: normal inspection, normal capillary refill. Absent: pedal edema, calf tenderness Back exam: Present: normal inspection. Absent: CVA tenderness (R), CVA tenderness (L) Neurological exam: Present: alert Skin exam: Present: warm, dry, intact, normal color. Absent: rash Course Vital Signs 09/09/22 09/10/22 09/10/22 23:27 00:58 01:08 Temperature 97.8 F Pulse Rate 102 H 82 84 Respiratory 20 Rate Blood Pressure 117/74 O2 Sat by Pulse 97 Oximetry 09/10/22 02:10 Temperature Pulse Rate 71 Respiratory 15 Rate Blood Pressure 127/88 O2 Sat by Pulse 100 Oximetry Chest Pain MDM - MDM The patient had 2 view chest x-ray which I interpreted as showing no cardiomegaly, no congestive heart failure, no pulmonary infiltrate. This patient is 26-year-old man presenting to have evaluation of upper chest tightness and dyspnea. The history and physical consistent with acute bronchitis/reactive airway disease. The patient did have marked improvement following medication and would like to go home. He will have course of steroid and albuterol. We discussed appropriate further care and follow-up as well as return parameters. Was pt. sent in by a medical professional or institution? @ -no Did you speak to anyone other than the patient for history? @ -[No Did you review nursing and triage notes? @ -[agree Were old charts reviewed? @ -[No Differential Diagnosis? @ -[Differential Dizziness: Differential Dyspnea: Coronary syndrome, arrhythmia, tamponade, asthma, COPD, pulmonary embolism, pneumonia, pneumothorax, pulmonary effusion, anaphylaxis, diabetic ketoacidosis, flailed chest, pulmonary contusion, diaphragmatic rupture, anemia, neuromuscular, this is not meant to be an all-inclusive list. EKG interpreted by me (3pts min.)? @ -[See chart X-rays interpreted by me (1pt min.)? @ -See chart CT interpreted by me (1pt min.)? @ - U/S interpreted by me (1pt. min.)? @ -[none] What testing was considered but not performed? (CT, X-rays, U/S, labs)? Why? @ [Blood testing was considered, but the patient had marked improvement following albuterol treatment, and this was held What meds were considered but not given? Why? @ -[none] Did you discuss the management of the patient with other professionals? @ -[No Did you reconcile home meds? @ -[none] Was smoking cessation discussed for >3mins.? @ -[none] Was critical care preformed (if so, how long)? @ -[none] Were there social determinants of health that impacted care today? How? (Homelessness, low income, unemployed, alcoholism, drug addiction, transportation, low edu. Level, literacy, decrease access to med. care, longterm, rehab)? @ -[No Was there de-escalation of care discussed even if they declined? (Discuss DNR or withdrawal of care, Hospice)? @ -[No What co-morbidities impacted this encounter? (DM, HTN, Smoking, COPD, CAD, Cancer, CVA, Hep., AIDS, mental health diagnosis, sleep apnea, morbid obesity)? @ -[None Was patient admitted / discharged? @ -[Discharged Undiagnosed new problem with uncertain prognosis? @ -[none] Drug Therapy requiring intensive monitoring for toxicity (Heparin, Nitro, Insulin, Cardizem)? @ -[none] Were any procedures done? @ -[none] Diagnosis/symptom? @ -[1. Acute bronchitis, uncomplicated Acute, or Chronic, or Acute on Chronic? @ -[Acute Uncomplicated (without systemic symptoms) or Complicated (systemic symptoms)? @ -[Uncomplicated Side effects of treatment? @ -[none] Exacerbation, Progression, or Severe Exacerbation] @ -[no] Poses a threat to life or bodily function? @ -[no] Disposition Clinical Impression: Acute bronchitis Disposition: HOME SELF-CARE Condition: Good Instructions (If sedation given, give patient instructions): Acute Bronchitis (ED) Prescriptions: predniSONE [Deltasone] 20 mg PO BID #8 tab Albuterol Inhaler [Ventolin Hfa Inhaler] 2 puff INHALATION Q4HR PRN #8 gm PRN Reason: Wheezing Is patient prescribed a controlled substance at d/c from ED?: No Referrals: None,Stated [Primary Care Provider] - 1-2 days
--- NOTE | 2022-09-10 00:38 | XR ---
EXAMINATION TYPE: XR chest 2V DATE OF EXAM: 09/10/2022 COMPARISON: 05/02/2022 HISTORY: Chest pain TECHNIQUE: FINDINGS: Heart and mediastinum are normal. Lungs are clear. Diaphragm is normal. Bony thorax appears normal. T he pulmonary vascularity is normal. IMPRESSION: Normal chest. No change.
[2022-09-10] MEDS ORDERED: IPRATROPIUM-ALBUTEROL 3 ML NEB INHALATION STA (00:49)
[2022-09-10] MEDS ORDERED: ALBUTEROL NEBULIZED 2.5 MG/3 ML INHALATION STA (00:49)
[2022-09-10 02:11] VITALS: BP 127/88; PULSE 71; RESP 15
== END 2022-09-10 02:16 | disposition home or self-care (01) ==
LOC: EC 23:26
DX: J20.9 Acute bronchitis, unspecified (principal); Z87.891 Personal history of nicotine dependence; Z20.822 Contact with and (suspected) exposure to COVID-19
CPT/HCPCS: 71046; 87636; 93005; 94640; 99285

== ENCOUNTER 2023-04-10 01:17 | Emergency (ER) | payer OTHER ==
[2023-04-10 01:42] VITALS: RESP 18
--- NOTE | 2023-04-10 03:42 | ED ---
General Adult HPI - General Chief complaint: Extremity Problem,Nontraumatic Stated complaint: Left Knee Pain Time Seen by Provider: 04/10/23 03:31 Source: patient Mode of arrival: ambulatory Limitations: no limitations - History of Present Illness Initial comments: Dictation was produced using [employer] dictation software. please excuse any grammatical, word or spelling errors. Chief Complaint: 27-year-old male presents to the emergency department for left knee pain History of Present Illness: 27-year-old male presents emergency Department with atraumatic left knee pain. Patient states symptoms began to 3 days ago. Patient states it hurts along the medial aspect of his left knee. Worse when he bears weight. Denies any fever. The ROS documented in this emergency department record has been reviewed and confirmed by me. Those systems with pertinent positive or negative responses have been documented in the HPI. All other systems are other negative and/or noncontributory. - Related Data Previous Rx's Medication Instructions Recorded Albuterol Inhaler [Ventolin Hfa 2 puff INHALATION Q4HR PRN #8 gm 09/10/22 Inhaler] predniSONE [Deltasone] 20 mg PO BID #8 tab 09/10/22 Allergies Allergy/AdvReac Type Severity Reaction Status Date / Time No Known Allergies Allergy Verified 04/10/23 01:42 Review of Systems ROS Statement: Those systems with pertinent positive or pertinent negative responses have been documented in the HPI. ROS Other: All systems not noted in ROS Statement are negative. 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 Cardiovascular: Heart regular rate and rhythm Chest: Able to complete full sentences, no retractions, no tachypnea Musculoskeletal: Pulses present and equal in all extremities, no peripheral edema Left knee: Mild palpatory tenderness along the medial aspect of the left knee, no effusion, non-erythematous, action extension intact no significant antalgia Motor: no focal deficits noted Neurological: CN II-XII grossly intact, no focal motor or sensory deficits noted Skin: Intact with no visualized rashes Psych: Normal affect and mood Limitations: no limitations Course Vital Signs 04/10/23 01:40 Temperature 98.5 F Pulse Rate 90 Respiratory 18 Rate Blood Pressure 113/69 O2 Sat by Pulse 96 Oximetry Medical Decision Making - Medical Decision Making Was pt. sent in by a medical professional or institution (MART[facility]NE[facility] Mauro, [employer], urgent care, hospital, or assisted...) When possible be specific @ -No Did you speak to anyone other than the patient for history (EMS, parent, family, police, friend...)? What history was obtained from this source @ -No Did you review nursing and triage notes (agree or disagree)? Why? @ -I reviewed and agree with nursing and triage notes Were old charts reviewed (outside hosp., previous admission, EMS record, old EKG, old radiological studies, urgent care reports/EKG's, assisted records)? Report findings @ -No old charts were reviewed Differential Diagnosis (chest pain, altered mental status, abdominal pain women, abdominal pain men, vaginal bleeding, musculoskeletal, weakness, fever, dyspnea, syncope, headache, dizziness, GI bleed, back pain, seizure, CVA, palpatations, mental health)? @ -not applicable EKG interpreted by me (3pts min.). @ -None done X-rays interpreted by me (1pt min.). @ -Knee x-ray shows no occult fractures CT interpreted by me (1pt min.). @ -None done U/S interpreted by me (1pt. min.). @ -None done What testing was considered but not performed or refused? (CT, X-rays, U/S, labs)? Why? @ -None What meds were considered but not given or refused? Why? @ -None Did you discuss the management of the patient with other professionals (maría elena bird i.e. MARTÍNEZ Mauro, [employer], lab, RT, psych nurse, secondary social studies teacher, infection control practitioner, teacher, program officer, protective services case worker)? Give summary @ -No Was smoking cessation discussed for >3mins.? @ -No Was critical care preformed (if so, how long)? @ -No Were there social determinants of health that impacted care today? How? (Homelessness, low income, unemployed, alcoholism, drug addiction, transportation, low edu. Level, literacy, decrease access to med. care, long term, rehab)? @ -No Was there de-escalation of care discussed even if they declined (Discuss DNR or withdrawal of care, Hospice)? DNR status @ -No What co-morbidities impacted this encounter? (DM, HTN, Smoking, COPD, CAD, Cancer, CVA, ARF, Chemo, Hep., AIDS, mental health diagnosis, sleep apnea, morbid obesity)? @ -None Was patient admitted / discharged? Hospital course, mention meds given and route, prescriptions, significant lab abnormalities, going to OR and other pertinent info. @ -27-year-old male presents to the emergency department for atraumatic knee pain. Vital signs stable. X-rays unremarkable. Patient discharged advised follow-up to Dr. webb referral to the specialist. Undiagnosed new problem with uncertain prognosis? @ -No Drug Therapy requiring intensive monitoring for toxicity (Heparin, Nitro, Insulin, Cardizem)? @ -No Were any procedures done? @ -No Diagnosis/symptom? Acute, or Chronic, or Acute on Chronic? Uncomplicated (without systemic symptoms) or Complicated (systemic symptoms)? @ -Atraumatic knee pain Side effects of treatment? @ -No Exacerbation, Progression, or Severe Exacerbation? @ -No Poses a threat to life or bodily function? How? (Chest pain, [place], [place], pneumonia, PE, COPD, DKA, ARF, appy, cholecystitis, CVA, Diverticulitis, Homicidal, Suicidal, threat to staff... and all critical care pts) @ -No Disposition Clinical Impression: Knee pain Disposition: HOME SELF-CARE Condition: Fair Instructions (If sedation given, give patient instructions): Knee Pain (ED) Is patient prescribed a controlled substance at d/c from ED?: No Referrals: Josemanuel Solo DO [Doctor of Osteopathic Medicine] - 1-2 days Time of Disposition: 05:02
--- NOTE | 2023-04-10 05:03 | XR ---
EXAM: XR Left Knee, 3 Views CLINICAL HISTORY: ITS.REASON XR Reason: pain TECHNIQUE: Three views of the left knee. COMPARISON: No relevant prior studies available. FINDINGS: Bones/joints: Mild osteoarthritis changes. Small joint effusion. No acute fracture. No dislocation. Soft tissues: Unremarkable. IMPRESSION: No acute findings in the left knee.
[2023-04-10 05:18] VITALS: BP 118/73; PULSE 72; TEMP 98
== END 2023-04-10 05:16 | disposition home or self-care (01) ==
LOC: EC 01:17
DX: M25.562 Pain in left knee (principal); I50.9 Heart failure, unspecified; F17.290 Nicotine dependence, other tobacco product, uncomplicated
CPT/HCPCS: 99283

== ENCOUNTER 2024-10-16 21:40 | Emergency (ER) | payer OTHER ==
[2024-10-16 21:44] VITALS: TEMP 97.3
--- NOTE | 2024-10-16 21:58 | ED ---
Back Pain HPI - General Chief Complaint: Back Pain/Injury Stated Complaint: Back Pain Time Seen by Provider: 10/16/24 21:55 Source: patient, RN notes reviewed Mode of arrival: ambulatory Limitations: no limitations - History of Present Illness Initial Comments: This is a 69-year-old male presenting with back pain (03/28) after bending over x 40 minutes ago. Patient states he was pulling a cable out of his trunk at work he felt sudden pain in his middle back with tingling/numbness radiating to bilateral hands/forearms and transient numbness in bilateral feet. Patient denies falling, radiating pain to torso, dyspnea, chest pain, ongoing lower extremity radiculopathy paresthesia. Patient states pain worsens when sitting upright and bending forward. MD Complaint: back pain, back injury Onset/Timin -: minutes(s) Similar Symptoms Previously: No Place: work Radiation: other (Bilateral upper extremity -paresthesia in forearms) Severity scale (1-10): 8 Consistency: constant Improves With: immobilization Worsens With: movement, sitting upright, walking Context: bending Associated Symptoms: denies other symptoms - Related Data Previous Rx's Medication Instructions Recorded Albuterol Inhaler [Ventolin Hfa 2 puff INHALATION Q4HR PRN #8 gm 09/10/22 Inhaler] predniSONE [Deltasone] 20 mg PO BID #8 tab 09/10/22 Cyclobenzaprine [Flexeril] 10 mg PO TID PRN #15 tab 10/16/24 Ibuprofen [Motrin] 800 mg PO Q8H PRN #30 tab 10/16/24 Allergies Allergy/AdvReac Type Severity Reaction Status Date / Time No Known Allergies Allergy Verified 10/16/24 21:44 Review of Systems ROS Statement: Those systems with pertinent positive or pertinent negative responses have been documented in the HPI. ROS Other: All systems not noted in ROS Statement are negative. 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 Absent: scleral icterus, conjunctival injection, periorbital swelling ENT exam: Present: normal exam, mucous membranes moist Neck exam: Present: normal inspection. Absent: tenderness, meningismus, lymphadenopathy Respiratory exam: Present: normal lung sounds bilaterally. Absent: respiratory distress, wheezes, rales, rhonchi, stridor Cardiovascular Exam: Present: regular rate, normal rhythm, normal heart sounds. Absent: systolic murmur, diastolic murmur, rubs, gallop, clicks GI/Abdominal exam: Present: soft, normal bowel sounds. Absent: distended, tenderness, guarding, rebound, rigid Extremities exam: Present: normal inspection, full ROM, normal capillary refill. Absent: tenderness, pedal edema, joint swelling, calf tenderness Back exam: Present: paraspinal tenderness (Positive right upper thoracic paraspinal muscle spasm without tenderness. Left paraspinal tenderness without muscle spasms), vertebral tenderness (Positive T3-T6 vertebral tenderness without crepitus or step-off with overlying edema.), other (Negative cervical spine tenderness, crepitus, step-off) Neurological exam: Present: alert, oriented X3, CN II-XII intact Psychiatric exam: Present: normal affect, normal mood Skin exam: Present: warm, dry, intact, normal color. Absent: rash Course Vital Signs 10/16/24 10/17/24 21:42 00:06 Temperature 97.3 F L Pulse Rate 85 65 Respiratory 18 16 Rate Blood Pressure 122/75 124/61 O2 Sat by Pulse 100 99 Oximetry Medical Decision Making - Medical Decision Making Was pt. sent in by a medical professional or institution (, [place], [employer], urgent care, hospital, or penitentiary...) When possible be specific @ -No Did you speak to anyone other than the patient for history (EMS, parent, family, police, friend...)? What history was obtained from this source @ -No Did you review nursing and triage notes (agree or disagree)? Why? @ -I reviewed and agree with nursing and triage notes Were old charts reviewed (outside hosp., previous admission, EMS record, old EKG, old radiological studies, urgent care reports/EKG's, penitentiary records)? Report findings @ -No old charts were reviewed Differential Diagnosis (chest pain, altered mental status, abdominal pain women, abdominal pain men, vaginal bleeding, weakness, fever, dyspnea, syncope, headache, dizziness, GI bleed, back pain, seizure, CVA, palpatations, mental health, musculoskeletal)? @ -Differential Musculoskeletal Muscular strain, contusion, ligament sprain, fracture, arthritis, septic arthritis, bursitis, cellulitis, muscle spasm, nerve compression, DVT, arterial occlusion, herpes zoster, electrolyte abnormality, tumor.... This is not meant to be in all inclusive list EKG interpreted by me (3pts min.). @ -Not done X-rays interpreted by me (1pt min.). @ -Thoracic spine x-ray shows no acute fracture or disc space narrowing. CT interpreted by me (1pt min.). @ -None done U/S interpreted by me (1pt. min.). @ -None done What testing was considered but not performed or refused? (CT, X-rays, U/S, labs)? Why? @ -None What meds were considered but not given or refused? Why? @ -None Did you discuss the management of the patient with other professionals (professionals i.e. , PA, BOX CAR CHECKER, lab, RT, psych nurse, social worker masters, pr manager, teacher, learning officer, casey saw operator)? Give summary @ -No Was smoking cessation discussed for >3mins.? @ -No Was critical care preformed (if so, how long)? @ -No Were there social determinants of health that impacted care today? How? (Homelessness, low income, unemployed, alcoholism, drug addiction, transportation, low edu. Level, literacy, decrease access to med. care, half-way, rehab)? @ -No Was there de-escalation of care discussed even if they declined (Discuss DNR or withdrawal of care, Hospice)? DNR status @ -No What co-morbidities impacted this encounter? (DM, HTN, Smoking, COPD, CAD, Cancer, CVA, ARF, Chemo, Hep., AIDS, mental health diagnosis, sleep apnea, morbid obesity)? @ -None Was patient admitted / discharged? Hospital course, mention meds given and route, prescriptions, significant lab abnormalities, going to OR and other pertinent info. @ -Thoracic spine x-ray shows no acute fracture or disc space narrowing. Patient provided IM Toradol, Solu-Medrol and Norflex, noting significant pain relief. Motrin 800 and Flexeril sent to patient's pharmacy. Advised follow-up with orthopedics for ongoing management of back pain. Discussed patient with Dr. Lan. Undiagnosed new problem with uncertain prognosis? @ -No Drug Therapy requiring intensive monitoring for toxicity (Heparin, Nitro, Insulin, Cardizem)? @ -No Were any procedures done? @ -No Diagnosis/symptom? @ -Thoracic back pain Acute, or Chronic, or Acute on Chronic? @ -Acute Uncomplicated (without systemic symptoms) or Complicated (systemic symptoms)? @ -Uncomplicated Side effects of treatment? @ -No Exacerbation, Progression, or Severe Exacerbation? @ -No Poses a threat to life or bodily function? How? (Chest pain, [place], [place], pneumonia, PE, COPD, DKA, ARF, appy, cholecystitis, CVA, Diverticulitis, Homicidal, Suicidal, threat to staff... and all critical care pts) @ -No Disposition Clinical Impression: Thoracic back pain Disposition: HOME SELF-CARE Condition: Good Instructions (If sedation given, give patient instructions): Acute Low Back Pain (ED) Additional Instructions: Rest and ice. Alternate Tylenol/Motrin every 4 hours for pain. Follow-up with PCP/orthopedics for ongoing management of back pain Prescriptions: Cyclobenzaprine [Flexeril] 10 mg PO TID PRN #15 tab PRN Reason: Muscle Spasm Ibuprofen [Motrin] 800 mg PO Q8H PRN #30 tab PRN Reason: Pain Is patient prescribed a controlled substance at d/c from ED?: No Referrals: None,Stated [Primary Care Provider] - 1-2 days Vesna Jorge DO [Doctor of Osteopathic Medicine] - 1-2 days Josemanuel Solo DO [Doctor of Osteopathic Medicine] - 1-2 days Time of Disposition: 23:26
[2024-10-16] MEDS: KETOROLAC 15 MG/ML 1 ML VIAL IM STA (22:35)
[2024-10-16] MEDS: ORPHENADRINE 30 MG/ML 2 ML VIAL IM STA (22:35)
[2024-10-16] MEDS: methylPREDNISolone SOD SUCCI 125 MG/2 ML VIAL IM ONE (22:35)
--- NOTE | 2024-10-16 23:18 | XR ---
EXAM: XR Thoracic Spine, 3 Views CLINICAL HISTORY: ITS.REASON XR Reason: Significant pain after bending over TECHNIQUE: Frontal, lateral and swimmer's views of the thoracic spine. COMPARISON: No relevant prior studies available. FINDINGS: Vertebrae: Unremarkable. No acute fracture. Normal alignment. Disc spaces: No acute findings. No significant narrowing. Soft tissues: Unremarkable. IMPRESSION: No acute osseous findings.
[2024-10-17 00:08] VITALS: BP 124/61; PULSE 65; RESP 16
== END 2024-10-17 00:06 | disposition home or self-care (01) ==
LOC: EC 21:40
DX: M54.6 Pain in thoracic spine (principal); F17.290 Nicotine dependence, other tobacco product, uncomplicated; X50.9XXA Other and unspecified overexertion or strenuous movements or postures, initial encounter
CPT/HCPCS: 72070; 99283; 96372 ×3; J2360; J1885; J2919